=== PATIENT | female | born 1965 | race Caucasian/White ===

== ENCOUNTER 2016-03-31 12:09 | Emergency (ER) | payer MEDICARE, OTHER ==
[2016-03-31] MEDS ORDERED: RINGERS SOLUTION,LACTATED 1,000 ML IV ONE (12:28)
[2016-03-31] MEDS ORDERED: MORPHINE SULFATE 10 MG/ML INJ IV ONE (12:29)
[2016-03-31] MEDS ORDERED: ONDANSETRON HCL INJ/PF 4 MG/2 ML SDV IV ONE (12:29)
[2016-03-31 12:42] LABS: ABSOLUTE BASOPHILS # (AUTO) 0.1 10^3/uL (0.0-0.2); ABSOLUTE EOSINOPHILS # (AUTO) 0.2 10^3/uL (0.0-0.6); ABSOLUTE LYMPHOCYTES (AUTO) 1.8 10^3/uL (0.5-4.7); ABSOLUTE MONOCYTES (AUTO) 0.7 10^3/uL (0.1-1.4); ABSOLUTE NEUT (AUTO) 4.4 10^3/uL (1.7-8.2); BASOPHILS % (AUTO) 1.3 % (0-2); EOSINOPHILS % (AUTO) 2.8 % (0-6); HEMATOCRIT 36.3 % (36.0-47.0); HEMOGLOBIN 11.8 g/dL (12.0-15.5); HGB HCT DIFFERENCE -0.9; LYMPHOCYTES % (AUTO) 25.4 % (13-45); MEAN CORPUSCULAR HEMOGLOBIN 25.8 pg (27.0-33.4); MEAN CORPUSCULAR HGB CONC 32.4 g/dL (32.0-36.0); MEAN CORPUSCULAR VOLUME 79 fl (80-97); MONOCYTES % (AUTO) 9.2 % (3-13); RED BLOOD COUNT 4.57 10^6/uL (3.72-5.28); RED CELL DISTRIBUTION WIDTH 15.5 % (11.5-14.0); SEGMENTED NEUTROPHILS % (AUTO) 61.3 % (42-78); WHITE BLOOD COUNT 7.2 10^3/uL (4.0-10.5)
[2016-03-31 12:49] LABS: PROTHROMBIN TIME 11.2 SEC (11.4-15.4)
[2016-03-31 12:50] LABS: PARTIAL THROMBOPLASTIN TIME 25.3 SEC (23.5-35.8)
[2016-03-31] MEDS ORDERED: DIPHENHYDRAMINE HCL 50 MG/ML VIAL ONE (13:00)
[2016-03-31 13:14] LABS: ALANINE AMINOTRANSFERASE 18 U/L (9-52); ALBUMIN 4.5 g/dL (3.5-5.0); ALKALINE PHOSPHATASE 83 U/L (38-126); ANION GAP 13 (5-19); ASPARTATE AMINO TRANSFERASE 22 U/L (14-36); BILIRUBIN,TOTAL 0.5 mg/dL (0.2-1.3); BLOOD UREA NITROGEN 10 mg/dL (7-20); CALCIUM 9.6 mg/dL (8.4-10.2); CARBON DIOXIDE 25 mmol/L (22-30); CHLORIDE 102 mmol/L (98-107); CREATININE RESULT 0.79 mg/dL (0.52-1.25); GLUCOSE 78 mg/dL (75-110); POTASSIUM 4.2 mmol/L (3.6-5.0); SODIUM 139.8 mmol/L (137-145); TOTAL PROTEIN 7.4 g/dL (6.3-8.2)
[2016-03-31] MEDS ORDERED: DIPHENHYDRAMINE HCL 50 MG/ML VIAL IV ONE (13:19)
[2016-03-31 13:52] LABS: APPEARANCE,URINE CLEAR; BILIRUBIN,URINE NEGATIVE (NEGATIVE); GLUCOSE, URINE NEGATIVE (NEGATIVE); KETONES,URINE NEGATIVE (NEGATIVE); LEUKOCYTE ESTERASE,URINE NEGATIVE (NEGATIVE); NITRITE,URINE NEGATIVE (NEGATIVE); PROTEIN,URINE NEGATIVE (NEGATIVE); URINE SPECIFIC GRAVITY 1.004; UROBILINOGEN,URINE NEGATIVE mg/dL (<2.0)
--- NOTE | 2016-03-31 15:00 | ER Document Report ---
ED Fall - General Chief Complaint: Fall Stated Complaint: FALL/ HEAD PAIN Notes: This is a 51-year-old female who states she was climbing a 12 foot ladder to try to reach some plumbing apparatus on her roof when she fell, striking her head, neck and back. Her daughter who is with her denies that the patient lost consciousness. Patient states she does remember what happened. She complains of left ankle pain, had neck and back pain. TRAVEL OUTSIDE OF THE [place] IN LAST 30 DAYS: No - Related data Allergies/Adverse Reactions: hydromorphone HCl [From Dilaudid] Allergy (Verified 10/29/15 13:43) tetracycline [Tetracycline] Allergy (Verified 10/29/15 13:43) Past Medical History - General Information source: Patient, Emergency Med Personnel - Social History Smoking Status: Unknown if Ever Smoked Frequency of alcohol use: None Drug Abuse: None Lives with: Family Family History: Reviewed & Not Pertinent - Past Medical History Cardiac Medical History: Reports: Hx Hypertension - no med Denies: Hx Coronary Artery Disease, Hx Heart Attack Pulmonary Medical History: Reports: Hx Pneumonia Denies: Hx Asthma, Hx Bronchitis, Hx COPD Neurological Medical History: Denies: Hx Cerebrovascular Accident, Hx Seizures Renal/ Medical History: Reports: Hx Kidney Stones Musculoskeltal Medical History: Reports Hx Arthritis, Reports Hx Musculoskeletal Trauma Psychiatric Medical History: Reports: Hx Depression Traumatic Medical History: Reports: Hx Pneumothorax Past Surgical History: Reports: Hx Abdominal Surgery - abscess, Hx Section, Hx Cholecystectomy, Hx Tonsillectomy - and adenoids, Hx Tubal Ligation - Immunizations Immunizations up to date: Yes Hx Diphtheria, Pertussis, Tetanus Vaccination: Yes Review of Systems - Review of Systems Constitutional: denies: Fever EENT: denies: Blurred vision, Throat pain, Difficulty swallowing Cardiovascular: denies: Syncope Respiratory: denies: Short of breath Gastrointestinal: denies: Abdominal pain Genitourinary: denies: Flank pain, Hematuria Musculoskeletal: Ankle swelling Skin: denies: Rash Hematologic/Lymphatic: denies: Swollen glands Neurological/Psychological: denies: Numbness, Tingling Physical Exam - Vital signs Vitals: Temp Pulse Resp BP Pulse Ox 98.1 F 99 18 126/98 H 100 03/31/16 12:26 03/31/16 12:26 03/31/16 12:26 03/31/16 12:26 03/31/16 12:26 - General General appearance: Appears well, Alert In distress: None - HEENT Head: Normocephalic, Atraumatic, Tenderness. No: Ecchymosis, [place]'s eyes Eyes: Normal Pupils: PERRL Ears: Normal Tympanic membrane: Normal Mouth/Lips: Normal Mucous membranes: Normal Pharynx: Normal Neck: Other - Diffuse midline cervical spine tenderness without step-off or deformity, no crepitus - Respiratory Respiratory status: No respiratory distress Breath sounds: Normal Chest palpation: Tender - Cardiovascular Rhythm: Regular Murmur: No - Abdominal Inspection: Normal, Obese Distension: No distension Tenderness: Tender - Mild diffuse tenderness without guarding or rebound - Back Back: Tender - Tender in the mid thoracic through lower lumbar spine - Extremities Hand: Other - 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 discussed pt status/ family concern with mental health who will see pt in ED. - Vital Signs Vital signs: Temp Pulse Resp BP Pulse Ox 98.1 F 99 16 123/69 96 03/31/16 12:26 03/31/16 12:26 03/31/16 16:01 03/31/16 16:01 03/31/16 16:01 - Laboratory Result Diagrams: 03/31/16 12:30 03/31/16 12:30 Laboratory results interpreted by me: 03/31/16 03/31/16 12:30 12:30 Hgb 11.8 L MCV 79 L MCH 25.8 L RDW 15.5 H PT 11.2 L Discharge - Discharge Clinical Impression: Closed fracture sternum Qualifiers: Encounter type: initial encounter Sternal location: manubrium Qualified Code(s) : S22.21XA - Fracture of manubrium, initial encounter for closed fracture Condition: Stable Disposition: HOME, SELF-CARE Additional Instructions: return if you have fever, shortness of breath, or any new concerns. Prescriptions: Hydrocodone/Acetaminophen [Mclean 5-325 mg Tablet] 1 tab PO 6XD PRN #12 tablet PRN Reason: Ibuprofen [Motrin 600 Mg Tablet] 600 mg PO TID #15 tablet
[2016-03-31] MEDS ORDERED: OXYCODONE-ACETAMINOPHEN 5-325 MG TABLET PO ONE (16:12)
[2016-03-31] MEDS ORDERED: KETOROLAC TROMETHAMINE INJ/PF 30 MG/1 ML SDV IV ONE (16:14)
[2016-03-31 16:38] VITALS: BP 123/69
== END 2016-03-31 17:40 | disposition home or self-care (01) ==
LOC: ER 12:09
DX: S22.21XA Fracture of manubrium, initial encounter for closed fracture (principal); R51 Headache; M25.572 Pain in left ankle and joints of left foot; M54.2 Cervicalgia; M54.9 Dorsalgia, unspecified; W19.XXXA Unspecified fall, initial encounter
CPT/HCPCS: 99284; 96361; 96374; 96375; 36415; 85025; 85610; 85730; 80053; 81001; 73600; 70450; 71260; 72125; 74177; J1200; J1885; J2270; A9270; J2405; J7120

== ENCOUNTER 2016-04-03 09:40 | Emergency (ER) | payer MEDICARE, OTHER ==
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
[2016-04-03] MEDS ORDERED: NORMAL SALINE 1000 ML 2,000 ML IV ONE (10:27)
[2016-04-03 11:06] LABS: ABSOLUTE BASOPHILS # (AUTO) 0.1 10^3/uL (0.0-0.2); ABSOLUTE EOSINOPHILS # (AUTO) 0.1 10^3/uL (0.0-0.6); ABSOLUTE LYMPHOCYTES (AUTO) 1.1 10^3/uL (0.5-4.7); ABSOLUTE MONOCYTES (AUTO) 0.5 10^3/uL (0.1-1.4); ABSOLUTE NEUT (AUTO) 11.8 10^3/uL (1.7-8.2); BASOPHILS % (AUTO) 0.4 % (0-2); EOSINOPHILS % (AUTO) 0.9 % (0-6); HEMATOCRIT 45.7 % (36.0-47.0); HEMOGLOBIN 13.7 g/dL (12.0-15.5); LYMPHOCYTES % (AUTO) 7.8 % (13-45); MEAN CORPUSCULAR HEMOGLOBIN 24.5 pg (27.0-33.4); MEAN CORPUSCULAR VOLUME 82 fl (80-97); MONOCYTES % (AUTO) 3.9 % (3-13); RED BLOOD COUNT 5.59 10^6/uL (3.72-5.28); RED CELL DISTRIBUTION WIDTH 16.2 % (11.5-14.0); WHITE BLOOD COUNT 13.6 10^3/uL (4.0-10.5)
[2016-04-03 11:27] LABS: HGB HCT DIFFERENCE -4.6
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
[2016-04-03] MEDS ORDERED: KETOROLAC TROMETHAMINE INJ/PF 30 MG/1 ML SDV IV ONE (12:27)
[2016-04-03 12:37] LABS: ALANINE AMINOTRANSFERASE 35 U/L (9-52); ALBUMIN 3.6 g/dL (3.5-5.0); ALKALINE PHOSPHATASE 82 U/L (38-126); ANION GAP 11 (5-19); ASPARTATE AMINO TRANSFERASE 16 U/L (14-36); BILIRUBIN,TOTAL 0.5 mg/dL (0.2-1.3); BLOOD UREA NITROGEN 12 mg/dL (7-20); CALCIUM 8.8 mg/dL (8.4-10.2); CARBON DIOXIDE 21 mmol/L (22-30); CHLORIDE 110 mmol/L (98-107); CREATININE RESULT 0.86 mg/dL (0.52-1.25); GLUCOSE 87 mg/dL (75-110); LIPASE 32.4 U/L (23-300); POTASSIUM 4.2 mmol/L (3.6-5.0); SODIUM 141.5 mmol/L (137-145); TOTAL PROTEIN 6.3 g/dL (6.3-8.2)
[2016-04-03 12:47] LABS: APPEARANCE,URINE CLOUDY; BILIRUBIN,URINE SMALL (NEGATIVE); GLUCOSE, URINE NEGATIVE (NEGATIVE); KETONES,URINE NEGATIVE (NEGATIVE); LEUKOCYTE ESTERASE,URINE TRACE (NEGATIVE); NITRITE,URINE NEGATIVE (NEGATIVE); PROTEIN,URINE 100 mg/dL (NEGATIVE); URINE SPECIFIC GRAVITY 1.026; UROBILINOGEN,URINE NEGATIVE mg/dL (<2.0)
[2016-04-03] MEDS ORDERED: CEFTRIAXONE 1 GM/D5W RTU 50 ML IV ONE (13:03)
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
[2016-04-03] MEDS ORDERED: DIPHENHYDRAMINE HCL 50 MG/ML VIAL IV ONE (13:22)
[2016-04-03] MEDS ORDERED: FAMOTIDINE INJ/PF 20 MG/2 ML SDV IV ONE (13:22)
[2016-04-03] MEDS ORDERED: MORPHINE SULFATE 10 MG/ML INJ IV ONE (14:45)
[2016-04-03] MEDS ORDERED: METRONIDAZOLE 500 MG TABLET PO ONE (15:00)
[2016-04-03] MEDS ORDERED: CIPROFLOXACIN HCL 750 MG TABLET PO ONE (15:00)
[2016-04-03 16:53] VITALS: BP 126/73
--- NOTE | 2016-04-03 19:24 | EKG REPORT ---
SEVERITY:- BORDERLINE ECG - SINUS RHYTHM BORDERLINE PROLONGED QT INTERVAL : Confirmed by: Saida Stanford MD 03-Apr-2016 19:22:24
== END 2016-04-03 16:40 | disposition home or self-care (01) ==
LOC: ER 09:40
DX: K52.9 Noninfective gastroenteritis and colitis, unspecified (principal); G44.309 Post-traumatic headache, unspecified, not intractable; W13.2XXS Fall from, out of or through roof, sequela; M54.5 Low back pain; R10.13 Epigastric pain; F17.200 Nicotine dependence, unspecified, uncomplicated; Z87.19 Personal history of other diseases of the digestive system; Z88.5 Allergy status to narcotic agent; Z88.1 Allergy status to other antibiotic agents; I10 Essential (primary) hypertension; Z90.49 Acquired absence of other specified parts of digestive tract; R00.0 Tachycardia, unspecified
CPT/HCPCS: 93005; 99284; 96361; 96375; 96365; 36415; 87086; 83690; 85025; 80053; 81001; 87493 ×2; 74177; 93010; J1200; J1885; J2270; A9270 ×2; J7030; S0028; J0696; J3490

== ENCOUNTER 2016-04-13 20:59 | Emergency (ER) | payer MEDICARE ==
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
[2016-04-14] MEDS ORDERED: NORMAL SALINE 1000 ML 1,000 ML IV ONE (00:12)
--- NOTE | 2016-04-14 00:34 | ER Document Report ---
ED GI/ - General Mode of Arrival: Medic Information source: Patient TRAVEL OUTSIDE OF THE [place] IN LAST 30 DAYS: No - HPI Patient complains to provider of: Abdominal pain, Diarrhea. No: Dysuria Onset: Other - see HPI Timing/Duration: Persistent Associated symptoms: Diarrhea, Dizzy, Nausea, Other - blurry vision. denies: Dysuria Similar symptoms previously: Yes Recently seen / treated by doctor: Yes <CATHLEEN WILKES - Last Filed: 04/14/16 04:48> <GARY JOHNSTON - Last Filed: 04/14/16 05:14> - General Chief Complaint: Nausea/Vomiting Stated Complaint: NAUSEA, VOMITING,DIZZINESS Notes: Patient is a 51-year-old female presenting to the emergency department with multiple complaints. Patient complains of nausea, vomiting, dizziness, blurred vision, abdominal pain, and diarrhea. Patient states that she has had these symptoms for the last 3 months. Patient has been to the emergency department multiple times for these symptoms since 08/2015. Patient states that she has been on 10 different courses of antibiotics over the last 3 months and that she has tested positive for C. Diff. Colitis at [facility]. patient states that her last course of antibiotics were finished on Thursday. Patient states that today she to yogurts and a banana and when she drank some Gatorade she became very nauseous. Patient denies any urinary symptoms or dysuria. Patient has a history appendectomy and cholecystectomy. Patient also states that she has some kidney and liver problems as well as GERD. (CATHLEEN WILKES) - Related Data Allergies/Adverse Reactions: hydromorphone HCl [From Dilaudid] Allergy (Verified 04/13/16 21:37) prednisone Allergy (Verified 04/13/16 21:37) Psychosis tetracycline [Tetracycline] Allergy (Verified 04/13/16 21:37) Past Medical History - General Information source: Patient - Social History Smoking Status: Current Every Day Smoker Chew tobacco use (# tins/day): No Frequency of alcohol use: Social Drug Abuse: None Family History: None - Past Medical History Cardiac Medical History: Reports: Hx Hypertension - no med Pulmonary Medical History: Reports: Hx Pneumonia Renal/ Medical History: Reports: Hx Kidney Stones GI Medical History: Reports: Hx Diverticulitis Musculoskeltal Medical History: Reports Hx Arthritis, Reports Hx Musculoskeletal Trauma Psychiatric Medical History: Reports: Hx Depression Traumatic Medical History: Reports: Hx Pneumothorax Past Surgical History: Reports: Hx Abdominal Surgery - abscess, SB resection, Hx Adenoidectomy, Hx Appendectomy, Hx Section, Hx Cholecystectomy, Hx Tonsillectomy - and adenoids, Hx Tubal Ligation - Immunizations Immunizations up to date: Yes Hx Diphtheria, Pertussis, Tetanus Vaccination: Yes <CATHLEEN WILKES - Last Filed: 04/14/16 04:48> Review of Systems - Review of Systems Constitutional: No symptoms reported EENT: No symptoms reported Cardiovascular: No symptoms reported Respiratory: No symptoms reported Gastrointestinal: See HPI, Abdominal pain, Diarrhea, Nausea Genitourinary: No symptoms reported. denies: Dysuria Female Genitourinary: No symptoms reported Musculoskeletal: See HPI Skin: No symptoms reported Hematologic/Lymphatic: No symptoms reported Neurological/Psychological: No symptoms reported -: Yes All other systems reviewed and negative <CATHLEEN WILKES - Last Filed: 04/14/16 04:48> Physical Exam - Vital signs Interpretation: Tachycardic - General General appearance: Appears well, Alert - HEENT Head: Normocephalic, Atraumatic Eyes: Normal Pupils: PERRL Mucous membranes: Dry - Respiratory Respiratory status: No respiratory distress Chest status: Nontender Breath sounds: Normal Chest palpation: Normal - Cardiovascular Rhythm: Regular Heart sounds: Normal auscultation Murmur: No - Abdominal Inspection: Normal Distension: No distension Bowel sounds: Normal Tenderness: Tender - Suprapubic tenderness to palpation Organomegaly: No organomegaly - Back Back: Normal, Nontender - Extremities General upper extremity: Normal ROM, Normal strength, Other - 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 General lower extremity: Normal inspection, Normal ROM, Normal strength - Neurological Neuro grossly intact: Yes Cognition: Normal Orientation: AAOx4 [place] Coma Scale Eye Opening: Spontaneous [place] Coma Scale Verbal: Oriented [place] Coma Scale Motor: Obeys Commands [place] Coma Scale Total: 15 Speech: Normal - Psychological Associated symptoms: Normal affect, Normal mood - Skin Skin Temperature: Warm Skin Moisture: Dry <CATHLEEN WILKES - Last Filed: 04/14/16 04:48> Course - Laboratory Result Diagrams: 04/14/16 02:15 04/14/16 01:22 <CATHLEEN WILKES - Last Filed: 04/14/16 04:48> - Laboratory Result Diagrams: 04/14/16 02:15 04/14/16 01:22 <GARY JOHNSTON - Last Filed: 04/14/16 05:14> - Re-evaluation Re-evalutation: 04/14/16 05:08 Patient has been ambulating back and forth to the bathroom without difficulty. No further vomiting or diarrhea. Blood work within normal limits. No evidence for UTI at this time. Patient has had this pain for 3 months now. She is following up with her primary care doctor about it. Patient will be discharged home. Agrees with plan. Taking by mouth without difficulty. Stable for discharge. (GARY JOHNSTON) - Vital Signs Vital signs: Temp Pulse Resp BP Pulse Ox 98.3 F 113 H 16 122/74 96 04/13/16 21:29 04/13/16 21:29 04/13/16 21:29 04/13/16 21:29 04/13/16 21:29 (CATHLEEN WILKES) (GARY JOHNSTON) - Laboratory Laboratory results interpreted by me: 04/14/16 04/14/16 01:22 02:15 Hgb 11.2 L Hct 35.1 L MCV 79 L MCH 25.4 L RDW 16.0 H Ur Leukocyte Esterase TRACE H Urine Ascorbic Acid 40 H (GARY JOHNSTON) Discharge <CATHLEEN WILKES - Last Filed: 04/14/16 04:48> <GARY JOHNSTON - Last Filed: 04/14/16 05:14> - Discharge Clinical Impression: Vomiting Qualifiers: Vomiting type: unspecified Vomiting Intractability: unspecified Nausea presence : with nausea Qualified Code(s): R11.2 - Nausea with vomiting, unspecified Diarrhea Qualifiers: Diarrhea type: unspecified type Qualified Code(s): R19.7 - Diarrhea, unspecified Abdominal pain Qualifiers: Abdominal location: generalized Qualified Code(s): R10.84 - Generalized abdominal pain Condition: Stable Disposition: HOME, SELF-CARE Instructions: Vomiting ([facility]), Diarrhea, Nonspecific ([facility]), Abdominal Pain ([facility]) Prescriptions: Ondansetron [Zofran Odt 4 mg Tablet] 1 - 2 tab PO Q4H PRN #15 tab.rapdis PRN Reason: For Nausea/Vomiting Oxycodone HCl/Acetaminophen [Percocet 5-325 mg Tablet] 1 - 2 tab PO Q4H PRN #15 tablet PRN Reason: Referrals: PAULINE REYES MD [Primary Care Provider] - Follow up tomorrow Scribe Attestation: 04/14/16 05:14 I personally performed the services described in the documentation, reviewed and edited the documentation which was dictated to the scribe in my presence, and it accurately records my words and actions. (GARY JOHNSTON) Scribe Documentation - Scribe Written by Scribe:: Cathleen Wilkes 04/14/16 04:47 acting as scribe for :: Pilar <CATHLEEN WILKES - Last Filed: 04/14/16 04:48>
[2016-04-14 01:49] LABS: ALANINE AMINOTRANSFERASE 29 U/L (9-52); ALBUMIN 3.5 g/dL (3.5-5.0); ALKALINE PHOSPHATASE 62 U/L (38-126); ANION GAP 12 (5-19); ASPARTATE AMINO TRANSFERASE 18 U/L (14-36); BILIRUBIN,TOTAL 0.4 mg/dL (0.2-1.3); BLOOD UREA NITROGEN 14 mg/dL (7-20); CALCIUM 9.3 mg/dL (8.4-10.2); CARBON DIOXIDE 22 mmol/L (22-30); CHLORIDE 105 mmol/L (98-107); CREATININE RESULT 0.75 mg/dL (0.52-1.25); GLUCOSE 80 mg/dL (75-110); LIPASE 53.9 U/L (23-300); POTASSIUM 4.5 mmol/L (3.6-5.0); SODIUM 138.5 mmol/L (137-145); TOTAL PROTEIN 6.9 g/dL (6.3-8.2)
[2016-04-14 02:46] LABS: ABSOLUTE BASOPHILS # (AUTO) 0.1 10^3/uL (0.0-0.2); ABSOLUTE EOSINOPHILS # (AUTO) 0.2 10^3/uL (0.0-0.6); ABSOLUTE LYMPHOCYTES (AUTO) 2.3 10^3/uL (0.5-4.7); ABSOLUTE MONOCYTES (AUTO) 0.6 10^3/uL (0.1-1.4); ABSOLUTE NEUT (AUTO) 4.9 10^3/uL (1.7-8.2); BASOPHILS % (AUTO) 1.5 % (0-2); EOSINOPHILS % (AUTO) 2.5 % (0-6); HEMATOCRIT 35.1 % (36.0-47.0); HEMOGLOBIN 11.2 g/dL (12.0-15.5); HGB HCT DIFFERENCE -1.5; LYMPHOCYTES % (AUTO) 28.5 % (13-45); MEAN CORPUSCULAR HEMOGLOBIN 25.4 pg (27.0-33.4); MEAN CORPUSCULAR HGB CONC 32.1 g/dL (32.0-36.0); MEAN CORPUSCULAR VOLUME 79 fl (80-97); MONOCYTES % (AUTO) 7.5 % (3-13); RED BLOOD COUNT 4.42 10^6/uL (3.72-5.28); WHITE BLOOD COUNT 8.2 10^3/uL (4.0-10.5)
[2016-04-14] MEDS ORDERED: MORPHINE SULFATE 10 MG/ML INJ IV ONE (02:46)
[2016-04-14] MEDS ORDERED: ONDANSETRON HCL INJ/PF 4 MG/2 ML SDV IV ONE (02:46)
[2016-04-14 03:07] LABS: APPEARANCE,URINE SLIGHTLY-CLOUDY; BILIRUBIN,URINE NEGATIVE (NEGATIVE); GLUCOSE, URINE NEGATIVE (NEGATIVE); KETONES,URINE NEGATIVE (NEGATIVE); LEUKOCYTE ESTERASE,URINE TRACE (NEGATIVE); NITRITE,URINE NEGATIVE (NEGATIVE); PROTEIN,URINE NEGATIVE (NEGATIVE); URINE SPECIFIC GRAVITY 1.027; UROBILINOGEN,URINE NEGATIVE mg/dL (<2.0)
[2016-04-14] MEDS ORDERED: OXYCODONE-ACETAMINOPHEN 5-325 MG TABLET PO ONE (04:47)
[2016-04-14] MEDS ORDERED: RINGERS SOLUTION,LACTATED 1,000 ML IV ONE (04:47)
[2016-04-14] MEDS ORDERED: HYDROCODONE/ACETAMINOPHEN 5-325 MG 6 TAB/DSPK PO PRN (05:14)
[2016-04-14] MEDS ORDERED: ONDANSETRON ODT 4 MG TAB (6 TAB/DSPK) PO PRN (05:14)
[2016-04-14 07:03] VITALS: BP 124/79
--- NOTE | 2016-04-14 08:20 | EKG REPORT ---
SEVERITY:- BORDERLINE ECG - SINUS RHYTHM BORDERLINE PROLONGED QT INTERVAL : Confirmed by: Anselmo Mccarthy MD 14-Apr-2016 08:19:44
== END 2016-04-14 06:40 | disposition home or self-care (01) ==
LOC: ER 20:59
DX: R10.84 Generalized abdominal pain (principal); R11.2 Nausea with vomiting, unspecified; R19.7 Diarrhea, unspecified; R42 Dizziness and giddiness; H53.8 Other visual disturbances; Z87.442 Personal history of urinary calculi; Z90.49 Acquired absence of other specified parts of digestive tract; Z98.51 Tubal ligation status; Z88.6 Allergy status to analgesic agent
CPT/HCPCS: 93005; 99284; 96361; 96375; 96365; 36415; 87040; 83690; 85025; 80053; 81001; 93010; J2270; A9270 ×3; J2405; J7030; J7120

== ENCOUNTER → 2016-05-30 | Outpatient (CLI) | payer MEDICARE ==
[2016-05-30 10:13] LABS: ABSOLUTE BASOPHILS # (AUTO) 0.1 10^3/uL (0.0-0.2); ABSOLUTE EOSINOPHILS # (AUTO) 0.2 10^3/uL (0.0-0.6); ABSOLUTE LYMPHOCYTES (AUTO) 2.4 10^3/uL (0.5-4.7); ABSOLUTE MONOCYTES (AUTO) 0.5 10^3/uL (0.1-1.4); BASOPHILS % (AUTO) 1.1 % (0-2); EOSINOPHILS % (AUTO) 2.7 % (0-6); HEMATOCRIT 39.4 % (36.0-47.0); HGB HCT DIFFERENCE -0.4; LYMPHOCYTES % (AUTO) 28.9 % (13-45); MEAN CORPUSCULAR HEMOGLOBIN 26.2 pg (27.0-33.4); MEAN CORPUSCULAR HGB CONC 32.9 g/dL (32.0-36.0); MEAN CORPUSCULAR VOLUME 80 fl (80-97); MONOCYTES % (AUTO) 6.4 % (3-13); RED BLOOD COUNT 4.94 10^6/uL (3.72-5.28); RED CELL DISTRIBUTION WIDTH 16.6 % (11.5-14.0); SEGMENTED NEUTROPHILS % (AUTO) 60.9 % (42-78); WHITE BLOOD COUNT 8.2 10^3/uL (4.0-10.5)
[2016-05-30 10:34] LABS: ALANINE AMINOTRANSFERASE 22 U/L (9-52); ALBUMIN 4.5 g/dL (3.5-5.0); ALKALINE PHOSPHATASE 84 U/L (38-126); ANION GAP 14 (5-19); ASPARTATE AMINO TRANSFERASE 19 U/L (14-36); BILIRUBIN,DIRECT 0.3 mg/dL (0.0-0.4); BILIRUBIN,TOTAL 0.5 mg/dL (0.2-1.3); BLOOD UREA NITROGEN 12 mg/dL (7-20); CALCIUM 9.9 mg/dL (8.4-10.2); CARBON DIOXIDE 26 mmol/L (22-30); CHLORIDE 103 mmol/L (98-107); CHOLESTEROL 228.29 mg/dL (0-200); CREATININE RESULT 0.69 mg/dL (0.52-1.25); Direct HDL 54 mg/dL (>40); GLUCOSE 76 mg/dL (75-110); LIPASE 66.3 U/L (23-300); POTASSIUM 4.7 mmol/L (3.6-5.0); SODIUM 143.4 mmol/L (137-145); TOTAL PROTEIN 7.8 g/dL (6.3-8.2); TRIGLYCERIDES 286 mg/dL (<150)
[2016-05-30 10:44] LABS: DIRECT LDL 116 mg/dL (<100)
[2016-05-30 10:46] LABS: VLDL CHOLESTEROL 57.2 mg/dL (10-31)
[2016-05-31 12:26] LABS: VITAMIN D 25-HYDROXY 20.2 ng/mL (30.0-100.0)
[2016-06-02 07:17] LABS: C-PEPTIDE 3.7 ng/mL (1.1-4.4)
[2016-06-03 07:22] LABS: PROINSULIN 4.4 pmol/L (0.0-10.0)
== END ==
LOC: LAB 09:39
PROVIDERS: ATTEND Internal Medicine
DX: I10 Essential (primary) hypertension (principal); M19.91 Primary osteoarthritis, unspecified site; E66.9 Obesity, unspecified; Z79.899 Other long term (current) drug therapy
CPT/HCPCS: 36415; 80053; 80061; 82306; 83036; 83690; 84206; 84443; 84681; 85025

== ENCOUNTER → 2016-06-05 | Outpatient (CLI) | payer MEDICARE ==
[2016-06-07 11:06] LABS: FOLLICLE STIMULATING HORMONE 79.9 mIU/mL (.); LUTEINIZING HORMONE 51.2 mIU/mL (.)
== END ==
LOC: LAB 14:54
PROVIDERS: ATTEND Midwife
DX: N92.6 Irregular menstruation, unspecified (principal)
CPT/HCPCS: 36415; 83001; 83002

== ENCOUNTER 2016-07-22 19:33 | Emergency (ER) | payer MEDICARE ==
[2016-07-22 19:43] VITALS: BP 119/44
--- NOTE | 2016-07-22 20:04 | ER Document Report ---
ED Psych Disorder / Suicide - General Chief Complaint: Psych Problem Stated Complaint: PSYCH EVALUATION Time Seen by Provider: 07/22/16 20:00 Information source: Patient Notes: 51-year-old female with a history of bipolar disorder as well as borderline personality disorder who presents today with "my head in a fog" last 3-4 months. She states she has intermittent thoughts of suicidality without a plan. Patient has overdosed in the past. Patient states she was admitted for suicidal ideation around one year ago. She denies any headache, nausea, vomiting, chest pain, any weakness or numbness. She denies any auditory or visual hallucinations. Patient went to see the primary psychiatrist Dr. Avendano who told her to come to the emergency department to be "watched overnight" since [facility] was full. TRAVEL OUTSIDE OF THE [place] IN LAST 30 DAYS: No - HPI Patient complains to provider of: Suicidal ideation Onset: Other - See above Onset was: Gradual Quality of pain: No pain Severity: Moderate Pain Level: Denies Suicide Risk Factors: Other - See above Normal mood: No Associated symptoms: Other - See above Similar symptoms previously: Yes Recently seen / treated by doctor: Yes - Related Data Allergies/Adverse Reactions: hydromorphone HCl [From Dilaudid] Allergy (Verified 07/22/16 19:57) prednisone Allergy (Verified 07/22/16 19:57) Psychosis tetracycline [Tetracycline] Allergy (Verified 07/22/16 19:57) Past Medical History - General Information source: Patient - Social History Smoking Status: Unknown if Ever Smoked Cigarette use (# per day): No Chew tobacco use (# tins/day): No Smoking Education Provided: No Frequency of alcohol use: None Drug Abuse: None Family History: None Patient has suicidal ideation: Yes Patient has homicidal ideation: No - Past Medical History Cardiac Medical History: Reports: Hx Hypertension - no med Denies: Hx Coronary Artery Disease, Hx Heart Attack Pulmonary Medical History: Reports: Hx Pneumonia Denies: Hx Asthma, Hx Bronchitis, Hx COPD Neurological Medical History: Denies: Hx Cerebrovascular Accident, Hx Seizures Renal/ Medical History: Reports: Hx Kidney Stones. Denies: Hx Peritoneal Dialysis GI Medical History: Reports: Hx Diverticulitis Musculoskeltal Medical History: Reports Hx Arthritis, Reports Hx Musculoskeletal Trauma Psychiatric Medical History: Reports: Hx Depression Traumatic Medical History: Reports: Hx Pneumothorax Past Surgical History: Reports: Hx Abdominal Surgery - abscess, SB resection, Hx Adenoidectomy, Hx Appendectomy, Hx Section, Hx Cholecystectomy, Hx Tonsillectomy - and adenoids, Hx Tubal Ligation - Immunizations Immunizations up to date: Yes Hx Diphtheria, Pertussis, Tetanus Vaccination: Yes Review of Systems - Review of Systems Constitutional: denies: Fever EENT: denies: Eye discharge, Nose discharge Respiratory: denies: Short of breath Gastrointestinal: denies: Vomiting Genitourinary: denies: Dysuria Musculoskeletal: denies: Leg swelling Skin: Other - no hives. denies: Rash Neurological/Psychological: Other - no slurred speech -: Yes All other systems reviewed and negative Physical Exam - Vital signs Vitals: Temp Pulse Resp BP Pulse Ox 97.5 F 96 16 119/44 L 99 07/22/16 19:42 07/22/16 19:42 07/22/16 19:42 07/22/16 19:42 07/22/16 19:42 Notes: Reviewed vital signs and nursing note as charted by RN. CONSTITUTIONAL: Alert and oriented and responds appropriately to questions. Well -appearing; well-nourished HEAD: Normocephalic; atraumatic EYES: PERRL; no nystagmus noted. ENT: Normal nose; no rhinorrhea; moist mucous membranes; pharynx without lesions noted NECK: Supple without meningismus; non-tender; no cervical lymphadenopathy, no masses CARD: Regular rate and rhythm; no murmurs, no clicks, no rubs, no gallops; symmetric distal pulses RESP: Normal chest excursion without splinting or tachypnea; breath sounds clear and equal bilaterally; no wheezes, no rhonchi, no rales ABD/GI: Normal bowel sounds; non-distended; soft, non-tenderses BACK: The back appears normal and is non-tender to palpation EXT: Normal ROM in all joints; non-tender to palpation; no cyanosis, no effusions, no edema SKIN: Normal color for age and race; warm; dry; good turgor; capillary refill < 2 seconds; no acute lesions noted NEURO: CN II through XII are intact Moves all extremities equally; Motor and sensory function intact PSYCH: Patient has some tangential thoughts. Affect flat. Course - Re-evaluation Re-evalutation: 07/22/16 20:04 Given the history and physical examination we will order a CT scan of the head as well as obtain a psychiatric consultation and psychiatric laboratory values with an EKG. I anticipate possible psychiatric placement. 07/22/16 21:02 I discussed personally with the radiologist CT scan of the head prior to my transfer the patient's care. He states he sees no acute findings. Psychiatric laboratory values and psychiatric consult is pending. EKG shows a heart of 82, normal sinus rhythm, normal axis, narrow QRS, no obvious ST elevation or depression. - Vital Signs Vital signs: Temp Pulse Resp BP Pulse Ox 97.5 F 96 16 119/44 L 99 07/22/16 19:42 07/22/16 19:42 07/22/16 19:42 07/22/16 19:42 07/22/16 19:42 - Laboratory Result Diagrams: 07/22/16 20:00 07/22/16 20:00 Laboratory results interpreted by me: 07/22/16 20:00 MCH 26.8 L RDW 15.2 H Discharge - Discharge Clinical Impression: Suicidal ideation
[2016-07-22 20:57] LABS: ABSOLUTE BASOPHILS # (AUTO) 0.1 10^3/uL (0.0-0.2); ABSOLUTE EOSINOPHILS # (AUTO) 0.4 10^3/uL (0.0-0.6); ABSOLUTE LYMPHOCYTES (AUTO) 2.3 10^3/uL (0.5-4.7); ABSOLUTE MONOCYTES (AUTO) 0.5 10^3/uL (0.1-1.4); BASOPHILS % (AUTO) 1.3 % (0-2); EOSINOPHILS % (AUTO) 4.4 % (0-6); HEMATOCRIT 42.1 % (36.0-47.0); HEMOGLOBIN 13.7 g/dL (12.0-15.5); LYMPHOCYTES % (AUTO) 28.2 % (13-45); MEAN CORPUSCULAR HEMOGLOBIN 26.8 pg (27.0-33.4); MEAN CORPUSCULAR HGB CONC 32.5 g/dL (32.0-36.0); MEAN CORPUSCULAR VOLUME 82 fl (80-97); MONOCYTES % (AUTO) 6.2 % (3-13); RED BLOOD COUNT 5.11 10^6/uL (3.72-5.28); RED CELL DISTRIBUTION WIDTH 15.2 % (11.5-14.0); SEGMENTED NEUTROPHILS % (AUTO) 59.9 % (42-78); WHITE BLOOD COUNT 8.3 10^3/uL (4.0-10.5)
[2016-07-22 21:09] LABS: APPEARANCE,URINE SLIGHTLY-CLOUDY; BILIRUBIN,URINE NEGATIVE (NEGATIVE); GLUCOSE, URINE NEGATIVE (NEGATIVE); KETONES,URINE NEGATIVE (NEGATIVE); LEUKOCYTE ESTERASE,URINE NEGATIVE (NEGATIVE); NITRITE,URINE NEGATIVE (NEGATIVE); PROTEIN,URINE NEGATIVE (NEGATIVE); URINE SPECIFIC GRAVITY 1.014; UROBILINOGEN,URINE NEGATIVE mg/dL (<2.0)
[2016-07-22 21:17] LABS: ALANINE AMINOTRANSFERASE 24 U/L (9-52); ALBUMIN 4.2 g/dL (3.5-5.0); ALKALINE PHOSPHATASE 90 U/L (38-126); ANION GAP 13 (5-19); ASPARTATE AMINO TRANSFERASE 23 U/L (14-36); BILIRUBIN,DIRECT 0.4 mg/dL (0.0-0.4); BILIRUBIN,TOTAL 0.6 mg/dL (0.2-1.3); BLOOD UREA NITROGEN 16 mg/dL (7-20); CALCIUM 9.5 mg/dL (8.4-10.2); CARBON DIOXIDE 24 mmol/L (22-30); CHLORIDE 103 mmol/L (98-107); CREATININE RESULT 0.87 mg/dL (0.52-1.25); GLUCOSE 73 mg/dL (75-110); POTASSIUM 4.9 mmol/L (3.6-5.0); SODIUM 139.6 mmol/L (137-145); TOTAL PROTEIN 7.5 g/dL (6.3-8.2)
[2016-07-22 21:19] LABS: ALCOHOL < 10 mg/dL (NONE DETECTED)
[2016-07-22 21:19] LABS: URINE BARBITURATES SCREEN NEGATIVE; URINE METHADONE SCREEN NEGATIVE; URINE OPIATES LOW NEGATIVE; URINE PHENCYCLIDINE SCREEN NEGATIVE
[2016-07-22] MEDS ORDERED: (PENDING PHARMACY ID) (Trazodone Hcl [Trazodone Hcl] 300 MG) PO PRN (21:43)
[2016-07-22] MEDS ORDERED: HYDROXYZINE PAMOATE 50 MG CAPSULE PO PRN (21:43)
[2016-07-22] MEDS ORDERED: TRAZODONE HCL 50 MG TABLET PO PRN (21:55)
[2016-07-22] MEDS ORDERED: OXCARBAZEPINE 150 MG TABLET PO SCH (22:00)
[2016-07-22] MEDS ORDERED: GABAPENTIN 400 MG CAPSULE PO SCH (22:00)
[2016-07-22] MEDS ORDERED: (PENDING PHARMACY ID) (Prazosin Hcl [Prazosin Hcl] 1 MG) PO SCH (22:00)
--- NOTE | 2016-07-22 22:13 | EKG REPORT ---
SEVERITY:- NORMAL ECG - SINUS RHYTHM : Confirmed by: Saida Stanford MD 22-Jul-2016 22:13:03
[2016-07-23] MEDS ORDERED: LANSOPRAZOLE 30 MG TAB.RAP.DR PO SCH (06:00)
[2016-07-23] MEDS ORDERED: OXCARBAZEPINE 150 MG TABLET PO SCH (10:00)
[2016-07-23] MEDS ORDERED: TRAZODONE HCL 50 MG TABLET PO SCH (10:00)
[2016-07-23] MEDS ORDERED: DULOXETINE HCL 30 MG CAPSULE.DR PO SCH (10:00)
[2016-07-23] MEDS ORDERED: ALPRAZOLAM 0.5 MG TABLET PO SCH (10:00)
[2016-07-23] MEDS ORDERED: GABAPENTIN 300 MG CAPSULE PO SCH (10:00)
[2016-07-23] MEDS ORDERED: (PENDING PHARMACY ID) (Alprazolam [Alprazolam] 1 MG) PO SCH (10:00)
[2016-07-23] MEDS ORDERED: (PENDING PHARMACY ID) (Duloxetine Hcl [Duloxetine Hcl] 60 MG) PO SCH (10:00)
[2016-07-23] MEDS ORDERED: OXCARBAZEPINE 150 MG PO SCH (10:00)
[2016-08-01] MEDS ORDERED: DOXAZOSIN MESYLATE 1 MG TABLET PO SCH (22:00)
== END 2016-07-23 11:18 ==
LOC: ER 19:33
DX: R45.851 Suicidal ideations (principal); F31.9 Bipolar disorder, unspecified
CPT/HCPCS: 93005; 99285; 36415; 80307 ×4; 85025; 80053; 81001; 70450; 93010; A9270 ×4

== ENCOUNTER 2016-08-09 16:33 | Emergency (ER) | payer MEDICARE ==
[2016-08-09] MEDS ORDERED: IPRATROPIUM/ALBUTEROL 0.5-2.5 MG/3 ML AMPUL NEB ONE (17:17)
--- NOTE | 2016-08-09 17:20 | ER Document Report ---
ED Medical Screen (RME) - General Chief Complaint: Cough Stated Complaint: FEVER Time Seen by Provider: 08/09/16 17:14 Mode of Arrival: Ambulatory Information source: Patient TRAVEL OUTSIDE OF THE [place] IN LAST 30 DAYS: No - HPI Patient complains to provider of: SOB; dyspnea Onset: Other - pt. with h/o COPD and bronchitis states she was given Z-pack by Dr. Wells earlier in the week but she is not improving. - Related Data Allergies/Adverse Reactions: hydromorphone HCl [From Dilaudid] Allergy (Verified 08/09/16 16:57) prednisone Allergy (Verified 08/09/16 16:57) Psychosis tetracycline [Tetracycline] Allergy (Verified 08/09/16 16:57) Past Medical History - Social History Chew tobacco use (# tins/day): No Frequency of alcohol use: Rare Drug Abuse: None - Past Medical History Cardiac Medical History: Reports: Hx Hypertension - no med Denies: Hx Coronary Artery Disease, Hx Heart Attack Pulmonary Medical History: Reports: Hx Pneumonia Denies: Hx Asthma, Hx Bronchitis, Hx COPD Neurological Medical History: Denies: Hx Cerebrovascular Accident, Hx Seizures Renal/ Medical History: Reports: Hx Kidney Stones. Denies: Hx Peritoneal Dialysis GI Medical History: Reports: Hx Diverticulitis Musculoskeltal Medical History: Reports Hx Arthritis, Reports Hx Musculoskeletal Trauma Psychiatric Medical History: Reports: Hx Depression Traumatic Medical History: Reports: Hx Pneumothorax Past Surgical History: Reports: Hx Abdominal Surgery - abscess, SB resection, Hx Adenoidectomy, Hx Appendectomy, Hx Section, Hx Cholecystectomy, Hx Tonsillectomy - and adenoids, Hx Tubal Ligation - Immunizations Immunizations up to date: Yes Hx Diphtheria, Pertussis, Tetanus Vaccination: Yes Physical Exam - Vital signs Vitals: Temp Pulse Resp BP Pulse Ox 98.1 F 104 H 16 134/93 H 95 08/09/16 16:58 08/09/16 16:58 08/09/16 16:58 08/09/16 16:58 08/09/16 16:58 Course - Vital Signs Vital signs: Temp Pulse Resp BP Pulse Ox 98.1 F 104 H 16 134/93 H 95 08/09/16 16:58 08/09/16 16:58 08/09/16 17:10 08/09/16 16:58 08/09/16 16:58
[2016-08-09 18:28] LABS: ABSOLUTE BASOPHILS # (AUTO) 0.1 10^3/uL (0.0-0.2); ABSOLUTE EOSINOPHILS # (AUTO) 0.2 10^3/uL (0.0-0.6); ABSOLUTE LYMPHOCYTES (AUTO) 2.1 10^3/uL (0.5-4.7); ABSOLUTE MONOCYTES (AUTO) 0.4 10^3/uL (0.1-1.4); ABSOLUTE NEUT (AUTO) 3.6 10^3/uL (1.7-8.2); BASOPHILS % (AUTO) 1.1 % (0-2); EOSINOPHILS % (AUTO) 2.7 % (0-6); HEMATOCRIT 38.8 % (36.0-47.0); HEMOGLOBIN 12.7 g/dL (12.0-15.5); HGB HCT DIFFERENCE -0.7; LYMPHOCYTES % (AUTO) 33.3 % (13-45); MEAN CORPUSCULAR HEMOGLOBIN 27.6 pg (27.0-33.4); MEAN CORPUSCULAR HGB CONC 32.8 g/dL (32.0-36.0); MEAN CORPUSCULAR VOLUME 84 fl (80-97); MONOCYTES % (AUTO) 5.7 % (3-13); RED BLOOD COUNT 4.61 10^6/uL (3.72-5.28); RED CELL DISTRIBUTION WIDTH 14.7 % (11.5-14.0); SEGMENTED NEUTROPHILS % (AUTO) 57.2 % (42-78); WHITE BLOOD COUNT 6.3 10^3/uL (4.0-10.5)
[2016-08-09 18:52] LABS: ALANINE AMINOTRANSFERASE 20 U/L (9-52); ALBUMIN 4.3 g/dL (3.5-5.0); ALKALINE PHOSPHATASE 76 U/L (38-126); ANION GAP 13 (5-19); ASPARTATE AMINO TRANSFERASE 16 U/L (14-36); BILIRUBIN,DIRECT 0.3 mg/dL (0.0-0.4); BILIRUBIN,TOTAL 0.3 mg/dL (0.2-1.3); BLOOD UREA NITROGEN 12 mg/dL (7-20); CALCIUM 9.6 mg/dL (8.4-10.2); CARBON DIOXIDE 26 mmol/L (22-30); CHLORIDE 102 mmol/L (98-107); CREATININE RESULT 0.79 mg/dL (0.52-1.25); GLUCOSE 85 mg/dL (75-110); POTASSIUM 4.6 mmol/L (3.6-5.0); SODIUM 140.5 mmol/L (137-145); TOTAL PROTEIN 7.4 g/dL (6.3-8.2)
--- NOTE | 2016-08-09 19:08 | RADIOLOGY REPORT (SQ) ---
EXAM DESCRIPTION: CHEST PA/LAT COMPLETED DATE/TIME: 08/09/2016 6:51 pm REASON FOR STUDY: sob; wheezing COMPARISON: 10/16/2015 EXAM PARAMETERS: NUMBER OF VIEWS: two views TECHNIQUE: Digital Frontal and Lateral radiographic views of the chest acquired. RADIATION DOSE: NA LIMITATIONS: none FINDINGS: LUNGS AND PLEURA: No opacities, masses or pneumothorax. No pleural effusion. MEDIASTINUM AND HILAR STRUCTURES: No masses or contour abnormalities. HEART AND VASCULAR STRUCTURES: Heart normal size. No evidence for failure. BONES: No acute findings. HARDWARE: None in the chest. Incidental note is made of surgical clips within the right upper quadra nt. OTHER: No other significant finding. IMPRESSION: NO SIGNIFICANT RADIOGRAPHIC FINDING IN THE CHEST. TECHNICAL DOCUMENTATION: JOB ID: [id number] [employer]- All Rights Reserved
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
[2016-08-09] MEDS ORDERED: ALBUTEROL SULFATE HFA (90 MCG/PUFF) 8 GM MDI (1 MDI/ER DISP) IH PRN (20:33)
[2016-08-09] MEDS ORDERED: ALBUTEROL SULFATE 0.083% NEB 2.5 MG/3 ML AMPUL NEB ONE (20:33)
[2016-08-09 21:46] VITALS: BP 115/59
== END 2016-08-09 21:45 | disposition home or self-care (01) ==
LOC: ER 16:33
DX: J40 Bronchitis, not specified as acute or chronic (principal); J04.0 Acute laryngitis; R05 Cough; R50.9 Fever, unspecified; J44.9 Chronic obstructive pulmonary disease, unspecified; F17.200 Nicotine dependence, unspecified, uncomplicated
CPT/HCPCS: 94640 ×2; 99283; 36415; 85025; 80053; 71020; A9270 ×2; J3490; J7620

== ENCOUNTER 2016-08-14 17:18 | Emergency (ER) | payer MEDICARE ==
[2016-08-14] MEDS ORDERED: ASPIRIN 81 MG TABLET, CHEWABLE PO ONE (17:57)
--- NOTE | 2016-08-14 18:04 | ER Document Report ---
ED Medical Screen (RME) - General Chief Complaint: Fainting Stated Complaint: WEAKNESS Time Seen by Provider: 08/14/16 17:57 Mode of Arrival: Ambulatory Information source: Patient Notes: 51-year-old female presents with complaints of 3 episodes of syncope. Patient notes a history of migraine headaches but has not had one in 23 years. Patient admits to headache now. I have greeted and performed a rapid initial assessment of this patient. A comprehensive ED assessment and evaluation of the patient, analysis of test results and completion of the medical decision making process will be conducted by additional ED providers. PHYSICAL EXAMINATION: GENERAL: Well-appearing, well-nourished and in no acute distress. HEAD: Atraumatic, normocephalic. EYES: Pupils equal round extraocular movements intact, left pupil cloudy, right pupil clear ENT: Nares patent NECK: Normal range of motion LUNGS: No respiratory distress Musculoskeletal: Normal range of motion NEUROLOGICAL: Normal speech, normal gait. PSYCH: Normal mood, normal affect. SKIN: Warm, Dry, normal turgor, no rashes or lesions noted. TRAVEL OUTSIDE OF THE [place] IN LAST 30 DAYS: No - Related Data Allergies/Adverse Reactions: hydromorphone HCl [From Dilaudid] Allergy (Verified 08/14/16 17:24) prednisone Allergy (Verified 08/14/16 17:24) Psychosis tetracycline [Tetracycline] Allergy (Verified 08/14/16 17:24) Past Medical History - Social History Chew tobacco use (# tins/day): No Frequency of alcohol use: Occasional Drug Abuse: None - Past Medical History Cardiac Medical History: Reports: Hx Hypertension - no med Denies: Hx Coronary Artery Disease, Hx Heart Attack Pulmonary Medical History: Reports: Hx Pneumonia Denies: Hx Asthma, Hx Bronchitis, Hx COPD Neurological Medical History: Denies: Hx Cerebrovascular Accident, Hx Seizures Renal/ Medical History: Reports: Hx Kidney Stones. Denies: Hx Peritoneal Dialysis GI Medical History: Reports: Hx Diverticulitis Musculoskeltal Medical History: Reports Hx Arthritis, Reports Hx Musculoskeletal Trauma Psychiatric Medical History: Reports: Hx Depression Traumatic Medical History: Reports: Hx Pneumothorax Past Surgical History: Reports: Hx Abdominal Surgery - abscess, SB resection, Hx Adenoidectomy, Hx Appendectomy, Hx Section, Hx Cholecystectomy, Hx Tonsillectomy - and adenoids, Hx Tubal Ligation - Immunizations Immunizations up to date: Yes Hx Diphtheria, Pertussis, Tetanus Vaccination: Yes Physical Exam - Vital signs Vitals: Temp Pulse Resp BP Pulse Ox 97.7 F 93 16 126/86 H 94 08/14/16 17:25 08/14/16 17:25 08/14/16 17:25 08/14/16 17:25 08/14/16 17:25 Course - Vital Signs Vital signs: Temp Pulse Resp BP Pulse Ox 97.7 F 93 16 126/86 H 94 08/14/16 17:25 08/14/16 17:25 08/14/16 17:25 08/14/16 17:25 08/14/16 17:25
--- NOTE | 2016-08-14 19:07 | RADIOLOGY REPORT (SQ) ---
EXAM DESCRIPTION: CHEST SINGLE VIEW COMPLETED DATE/TIME: 08/14/2016 6:47 pm REASON FOR STUDY: syncope COMPARISON: 08/09/2016. EXAM PARAMETERS: NUMBER OF VIEWS: One view. TECHNIQUE: Single frontal radiographic view of the chest acquired. RADIATION DOSE: NA LIMITATIONS: None. FINDINGS: LUNGS AND PLEURA: No opacities, masses or pneumothorax. No pleural effusion. MEDIASTINUM AND HILAR STRUCTURES: No masses. Contour normal. HEART AND VASCULAR STRUCTURES: Heart normal in size. Normal vasculature. BONES: No acute findings. HARDWARE: None in the chest. OTHER: No other significant finding. IMPRESSION: NO ACUTE RADIOGRAPHIC FINDING IN THE CHEST. TECHNICAL DOCUMENTATION: JOB ID: [id number]
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
[2016-08-14 20:34] LABS: ABSOLUTE BASOPHILS # (AUTO) 0.1 10^3/uL (0.0-0.2); ABSOLUTE EOSINOPHILS # (AUTO) 0.2 10^3/uL (0.0-0.6); ABSOLUTE LYMPHOCYTES (AUTO) 2.3 10^3/uL (0.5-4.7); ABSOLUTE MONOCYTES (AUTO) 0.4 10^3/uL (0.1-1.4); ABSOLUTE NEUT (AUTO) 4.2 10^3/uL (1.7-8.2); BASOPHILS % (AUTO) 0.8 % (0-2); EOSINOPHILS % (AUTO) 2.3 % (0-6); HEMATOCRIT 44.2 % (36.0-47.0); HEMOGLOBIN 14.5 g/dL (12.0-15.5); HGB HCT DIFFERENCE -0.7; MEAN CORPUSCULAR HEMOGLOBIN 27.5 pg (27.0-33.4); MEAN CORPUSCULAR HGB CONC 32.8 g/dL (32.0-36.0); MEAN CORPUSCULAR VOLUME 84 fl (80-97); MONOCYTES % (AUTO) 5.2 % (3-13); RED BLOOD COUNT 5.27 10^6/uL (3.72-5.28); RED CELL DISTRIBUTION WIDTH 14.4 % (11.5-14.0); SEGMENTED NEUTROPHILS % (AUTO) 59.7 % (42-78); WHITE BLOOD COUNT 7.1 10^3/uL (4.0-10.5)
--- NOTE | 2016-08-14 20:57 | RADIOLOGY REPORT (SQ) ---
EXAM DESCRIPTION: CT HEAD WITHOUT COMPLETED DATE/TIME: 08/14/2016 8:49 pm REASON FOR STUDY: headache COMPARISON: 07/22/2016. TECHNIQUE: Axial images acquired through the brain without intravenous contrast. Images reviewed wi th bone, brain and subdural windows. Images stored on PACS. All CT scanners at this facility use dose modulation, iterative reconstruction, and/or weight based d osing when appropriate to reduce radiation dose to as low as reasonably achievable (ALARA). [facility]: Dose Right [facility]: CareDose [facility]: Dose Right [facility]: Teradose 4D [facility]: CVRx RADIATION DOSE: 64.61 mGy. LIMITATIONS: None. FINDINGS: VENTRICLES: Normal size and contour. CEREBRUM: No masses. No hemorrhage. No midline shift. Normal joshi/white matter differentiation. N o evidence for acute infarction. CEREBELLUM: No masses. No hemorrhage. No alteration of density. No evidence for acute infarction. EXTRAAXIAL SPACES: No fluid collections. No masses. ORBITS AND GLOBE: No intra- or extraconal masses. Normal contour of globe without masses. CALVARIUM: No fracture. PARANASAL SINUSES: No fluid or mucosal thickening. SOFT TISSUES: No mass or hematoma. OTHER: No other significant finding. IMPRESSION: NORMAL BRAIN CT WITHOUT CONTRAST. TECHNICAL DOCUMENTATION: JOB ID: [id number] Quality ID # [id number]: Final reports with documentation of one or more dose reduction techniques (e.g., Au tomated exposure control, adjustment of the mA and/or kV according to patient size, use of iterative reconstruction technique) 2010 [employer]- All Rights Reserved
[2016-08-14 20:58] LABS: ALANINE AMINOTRANSFERASE 16 U/L (9-52); ALBUMIN 4.6 g/dL (3.5-5.0); ALKALINE PHOSPHATASE 92 U/L (38-126); ANION GAP 9 (5-19); ASPARTATE AMINO TRANSFERASE 20 U/L (14-36); BILIRUBIN,DIRECT 0.3 mg/dL (0.0-0.4); BILIRUBIN,TOTAL 0.5 mg/dL (0.2-1.3); BLOOD UREA NITROGEN 14 mg/dL (7-20); CALCIUM 10.1 mg/dL (8.4-10.2); CARBON DIOXIDE 26 mmol/L (22-30); CHLORIDE 103 mmol/L (98-107); CREATINE KINASE 38 U/L (30-135); CREATININE RESULT 0.78 mg/dL (0.52-1.25); GLUCOSE 78 mg/dL (75-110); POTASSIUM 4.6 mmol/L (3.6-5.0); SODIUM 138.2 mmol/L (137-145); TOTAL PROTEIN 8.1 g/dL (6.3-8.2)
[2016-08-14 21:07] LABS: CREATINE KINASE MB 0.42 ng/mL (<4.55)
[2016-08-14 21:08] LABS: TROPONIN I < 0.012 ng/mL
[2016-08-14] MEDS ORDERED: KETOROLAC TROMETHAMINE INJ/PF 30 MG/1 ML SDV IV ONE (21:15)
[2016-08-14] MEDS ORDERED: METOCLOPRAMIDE HCL INJ/PF 10 MG/2 ML SDV IV ONE (21:15)
[2016-08-14] MEDS ORDERED: DIPHENHYDRAMINE HCL 25 MG CAPSULE PO ONE (21:15)
[2016-08-14 23:52] VITALS: BP 114/76
--- NOTE | 2016-08-15 11:04 | EKG REPORT ---
SEVERITY:- BORDERLINE ECG - SINUS RHYTHM PROBABLE LEFT ATRIAL ABNORMALITY : Confirmed by: Saida Stanford MD 15-Aug-2016 11:03:45
== END 2016-08-14 23:15 | disposition home or self-care (01) ==
LOC: ER 17:18
DX: R51 Headache (principal); R53.1 Weakness; R55 Syncope and collapse; F17.210 Nicotine dependence, cigarettes, uncomplicated; Z88.6 Allergy status to analgesic agent; Z87.442 Personal history of urinary calculi; Z90.49 Acquired absence of other specified parts of digestive tract; Z98.51 Tubal ligation status
CPT/HCPCS: 93005; 99285; 96374; 96375; 36415; 82553; 82550; 85025; 80053; 84484; 71010; 70450; 93010; A9270; J1885; J2765

== ENCOUNTER 2016-09-18 19:40 | Observation (INO) | payer MEDICARE ==
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
[2016-09-18] MEDS ORDERED: MORPHINE SULFATE 10 MG/ML INJ IV ONE ×2 (20:58→22:26)
[2016-09-18] MEDS ORDERED: ONDANSETRON HCL INJ/PF 4 MG/2 ML SDV IV ONE (20:58)
[2016-09-18 21:29] LABS: APPEARANCE,URINE SLIGHTLY-CLOUDY; BILIRUBIN,URINE NEGATIVE (NEGATIVE); GLUCOSE, URINE NEGATIVE (NEGATIVE); KETONES,URINE NEGATIVE (NEGATIVE); LEUKOCYTE ESTERASE,URINE TRACE (NEGATIVE); NITRITE,URINE NEGATIVE (NEGATIVE); PROTEIN,URINE NEGATIVE (NEGATIVE); URINE SPECIFIC GRAVITY 1.023; UROBILINOGEN,URINE NEGATIVE mg/dL (<2.0)
[2016-09-18 21:47] LABS: ABSOLUTE BASOPHILS # (AUTO) 0.1 10^3/uL (0.0-0.2); ABSOLUTE EOSINOPHILS # (AUTO) 0.2 10^3/uL (0.0-0.6); ABSOLUTE MONOCYTES (AUTO) 0.5 10^3/uL (0.1-1.4); EOSINOPHILS % (AUTO) 3.1 % (0-6); HEMATOCRIT 35.7 % (36.0-47.0); HEMOGLOBIN 11.7 g/dL (12.0-15.5); HGB HCT DIFFERENCE -0.6; MEAN CORPUSCULAR HEMOGLOBIN 28.1 pg (27.0-33.4); MEAN CORPUSCULAR HGB CONC 32.7 g/dL (32.0-36.0); MEAN CORPUSCULAR VOLUME 86 fl (80-97); RED BLOOD COUNT 4.15 10^6/uL (3.72-5.28); RED CELL DISTRIBUTION WIDTH 14.9 % (11.5-14.0); SEGMENTED NEUTROPHILS % (AUTO) 58.9 % (42-78); WHITE BLOOD COUNT 6.8 10^3/uL (4.0-10.5)
[2016-09-18] MEDS ORDERED: MORPHINE SULFATE 10 MG/ML INJ ONE (22:20)
[2016-09-18 22:27] LABS: ALANINE AMINOTRANSFERASE 19 U/L (9-52); ALBUMIN 3.9 g/dL (3.5-5.0); ALKALINE PHOSPHATASE 78 U/L (38-126); ANION GAP 9 (5-19); ASPARTATE AMINO TRANSFERASE 29 U/L (14-36); BILIRUBIN,DIRECT 0.4 mg/dL (0.0-0.4); BILIRUBIN,TOTAL 0.5 mg/dL (0.2-1.3); BLOOD UREA NITROGEN 10 mg/dL (7-20); CALCIUM 8.9 mg/dL (8.4-10.2); CARBON DIOXIDE 27 mmol/L (22-30); CHLORIDE 106 mmol/L (98-107); CREATININE RESULT 0.74 mg/dL (0.52-1.25); GLUCOSE 85 mg/dL (75-110); POTASSIUM 4.9 mmol/L (3.6-5.0); SODIUM 142.4 mmol/L (137-145); TOTAL PROTEIN 7.1 g/dL (6.3-8.2)
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
[2016-09-19] MEDS ORDERED: ONDANSETRON 4 MG TAB.RAPDIS PO PRN (02:24)
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
[2016-09-19] MEDS: NORMAL SALINE 1000 ML 1,000 ML IV PRN ×2 (05:47→16:29)
[2016-09-19] MEDS: MORPHINE SULFATE 10 MG/ML INJ IV PRN ×4 (05:48→20:48)
[2016-09-19] MEDS: ENOXAPARIN SODIUM INJ 40 MG/0.4 ML DISP.SYRIN SUBCUT SCH (09:18)
--- NOTE | 2016-09-19 12:37 | PSYCHOLOGICAL NOTE ---
Psych Note - Psych Note Psych Note: Psychiatric evaluation consult requested for concerns the patient has had previous suicide attempts and suicidal ideation. Patient states it has been a year since her attempted suicide (clinician notes the patient attempted suicide by overdose on 10/29/2015). Patient states in July she went to [facility] because she was having suicidal ideation and "losing time " so was concerned she would accidentally hurt herself during those times. Patient reports she was going through medication changes at that time. She states she ended up being discharged early because "it was an unhealthy environment for me and it was better for me to heal at home." Patient states she has been taking her medications every night but is unable to take them any other time because it is too much money to fill her prescriptions. Patient reports it is over $100 a month for her medications and her inhaler is the most expensive at over $40. Patient states she has worked with her providers to find medications that are not as expensive. Patient adamantly denies current suicidal ideation. Patient is alert and orientated to person, place, time and circumstance. Mood is slightly irritable but over all euthymic (clinician notes patient is currently NPO for up coming surgery and wants something to drink). Patient denies suicidal and homicidal ideation. Patient denies auditory and visual hallucinations; patient is not demonstrating any behaviour congruent with responding to internal stimuli. No delusions are noted. Eye contact was well maintained. Thought process is organized and linear. Attention and concentration are good. Insight, judgment and impulse control are currently good. 309.81 (F43.10) Posttraumatic Stress Disorder, per history 296.80 (F31.9) Unspecified Bipolar and Related Disorder, per history 301.83 (F60.3) Borderline Personality Disorder per history Impression/Plan: Patient is considered psychiatrically cleared. Patient does not meet IVC criteria per [place] GS 122C. Patient denies current suicidal ideation. Patient is recommended to continue regularly scheduled mental health treatment. Patient has outpatient mental health provider through [facility]. Dr. Diamond was consulted on the care and management of this patient.
--- NOTE | 2016-09-19 15:28 | PROGRESS NOTE E ---
Progress Note NAME: MATTHEW SALCIDO : 1965 AGE: 51Y DATE: 09/19/2016 ROOM: 428 SUBJECTIVE: She is still complaining of pain along the pubic section incision site. OBJECTIVE: I reviewed the CAT scan of the abdomen with Dr. Bowden, and it appears that the finding on the mesentery may be scarring from her previous surgery in January 2016. She is very thirsty and hungry. PLAN: Plan is to start her on clear liquids and increase slowly. DICTATING PHYSICIAN: BRAXTON HINTON M.D. [id number] PHY#: [id number] ID: [id number] JOB#: [id number] ACCT: [id number] cc:BRAXTON HINTON M.D. >
[2016-09-20] MEDS: MORPHINE SULFATE 10 MG/ML INJ IV PRN ×4 (00:57→20:06)
--- NOTE | 2016-09-20 10:53 | PROGRESS NOTE E ---
Progress Note NAME: MATTHEW SALCIDO : 1965 AGE: 51Y DATE: 09/20/2016 ROOM: 428 SUBJECTIVE: She is complaining of more diffuse abdominal pains this morning with one episode of vomiting. Her abdomen is soft and with diffuse tenderness on deep palpation. She is afebrile. She is on a lot of antianxiety medications and she is concerned that she is not getting any of the medications. PLAN: Resume all of her medications and we will have the hospitalist to help us with medical treatment. We will hold or cut back a little bit on her p.o. liquid intake and resume IV fluids for now. We will continue her on parenteral pain medications. We will repeat the CBC in the morning. DICTATING PHYSICIAN: BRAXTON HINTON M.D. [id number] PHY#: [id number] ID: [id number] JOB#: [id number] ACCT: [id number] cc: >
[2016-09-20] MEDS ORDERED: HYDROMORPHONE HCL INJ/PF 2 MG/ML AMPULE IV PRN (10:55)
[2016-09-20] MEDS ORDERED: ONDANSETRON HCL INJ/PF 4 MG/2 ML SDV IV PRN (10:55)
[2016-09-20] MEDS: ENOXAPARIN SODIUM INJ 40 MG/0.4 ML DISP.SYRIN SUBCUT SCH (11:25)
[2016-09-20] MEDS ORDERED: OXCARBAZEPINE 150 MG TABLET PO ONE (11:30)
[2016-09-20] MEDS ORDERED: ALPRAZOLAM 0.5 MG TABLET PO ONE (11:30)
[2016-09-20] MEDS: GABAPENTIN 100 MG CAPSULE PO SCH ×2 (13:22→21:40)
[2016-09-20] MEDS: NORMAL SALINE 1000 ML 1,000 ML IV PRN (13:23)
[2016-09-20] MEDS ORDERED: FUROSEMIDE INJ/PF 20 MG/2 ML SDV IV ONE (15:37)
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
[2016-09-20] MEDS: ALPRAZOLAM 0.5 MG TABLET PO SCH (21:38)
[2016-09-20] MEDS: BUDESONIDE/FORMOTEROL 160-4.5 MCG 60 PUFF/6 GM MDI IH SCH (21:39)
[2016-09-20] MEDS: DULOXETINE HCL 30 MG CAPSULE.DR PO SCH (21:40)
[2016-09-20] MEDS: FLUTICASONE/SALMETEROL DISKUS 250-50 MCG/DOSE IH SCH (21:40)
[2016-09-20] MEDS: OXCARBAZEPINE 150 MG TABLET PO SCH (21:40)
[2016-09-20] MEDS ORDERED: TRAZODONE HCL 50 MG TABLET PO SCH (22:00)
[2016-09-21] MEDS: GABAPENTIN 100 MG CAPSULE PO SCH ×2 (06:03→13:09)
[2016-09-21] MEDS: FLUTICASONE/SALMETEROL DISKUS 250-50 MCG/DOSE IH SCH (09:55)
[2016-09-21] MEDS: OXCARBAZEPINE 150 MG TABLET PO SCH (09:55)
[2016-09-21] MEDS: ALPRAZOLAM 0.5 MG TABLET PO SCH (09:55)
[2016-09-21] MEDS: DULOXETINE HCL 30 MG CAPSULE.DR PO SCH (09:55)
[2016-09-21] MEDS: BUDESONIDE/FORMOTEROL 160-4.5 MCG 60 PUFF/6 GM MDI IH SCH (09:55)
[2016-09-21] MEDS: ENOXAPARIN SODIUM INJ 40 MG/0.4 ML DISP.SYRIN SUBCUT SCH (09:56)
[2016-09-21] MEDS ORDERED: ARIPIPRAZOLE 5 MG TABLET PO SCH (10:00)
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
[2016-09-21 15:51] VITALS: BP 107/51
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
== END 2016-09-21 17:27 | disposition home or self-care (01) ==
LOC: ER 19:40 → EH 09-19 02:25 → UNDOADMOB 09-19 02:40 → EH 09-19 02:40 → 4S 09-19 04:38
PROVIDERS: ATTEND Surgery
DX: R10.31 Right lower quadrant pain (principal); R93.5 Abnormal findings on diagnostic imaging of other abdominal regions, including retroperitoneum; R11.0 Nausea; R19.5 Other fecal abnormalities; F31.9 Bipolar disorder, unspecified; Z94.5 Skin transplant status; R19.4 Change in bowel habit; G89.21 Chronic pain due to trauma; F60.3 Borderline personality disorder; E87.70 Fluid overload, unspecified; F45.41 Pain disorder exclusively related to psychological factors; K52.9 Noninfective gastroenteritis and colitis, unspecified; R14.3 Flatulence; Z87.828 Personal history of other (healed) physical injury and trauma; J44.9 Chronic obstructive pulmonary disease, unspecified; Z90.49 Acquired absence of other specified parts of digestive tract; Z87.19 Personal history of other diseases of the digestive system; Z79.899 Other long term (current) drug therapy; Z87.891 Personal history of nicotine dependence; Z98.51 Tubal ligation status; Z87.442 Personal history of urinary calculi
CPT/HCPCS: 96376; 99285; 96374; 96375; 36415; 87045; 87205; 83690; 85025; 82272; 80053; 81001; 87493 ×2; 74177; G0378 ×4; A9270 ×11; J1940; J3490 ×4; J2270 ×3; J1650; J2405 ×2; J7030 ×2; S0119

== ENCOUNTER 2016-09-22 16:03 | Emergency (ER) | payer MEDICARE ==
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
[2016-09-22 18:17] LABS: ABSOLUTE BASOPHILS # (AUTO) 0.1 10^3/uL (0.0-0.2); ABSOLUTE EOSINOPHILS # (AUTO) 0.2 10^3/uL (0.0-0.6); ABSOLUTE LYMPHOCYTES (AUTO) 1.9 10^3/uL (0.5-4.7); ABSOLUTE MONOCYTES (AUTO) 0.5 10^3/uL (0.1-1.4); ABSOLUTE NEUT (AUTO) 4.4 10^3/uL (1.7-8.2); BASOPHILS % (AUTO) 1.1 % (0-2); EOSINOPHILS % (AUTO) 2.2 % (0-6); HEMATOCRIT 39.8 % (36.0-47.0); HEMOGLOBIN 12.9 g/dL (12.0-15.5); HGB HCT DIFFERENCE -1.1; LYMPHOCYTES % (AUTO) 27.2 % (13-45); MEAN CORPUSCULAR HEMOGLOBIN 27.8 pg (27.0-33.4); MEAN CORPUSCULAR HGB CONC 32.5 g/dL (32.0-36.0); MEAN CORPUSCULAR VOLUME 86 fl (80-97); MONOCYTES % (AUTO) 6.8 % (3-13); RED BLOOD COUNT 4.65 10^6/uL (3.72-5.28); RED CELL DISTRIBUTION WIDTH 15.3 % (11.5-14.0); SEGMENTED NEUTROPHILS % (AUTO) 62.7 % (42-78)
[2016-09-22 18:24] LABS: AMORPHOUS SEDIMENT,URINE TRACE /HPF; APPEARANCE,URINE CLOUDY; BILIRUBIN,URINE NEGATIVE (NEGATIVE); GLUCOSE, URINE NEGATIVE (NEGATIVE); KETONES,URINE NEGATIVE (NEGATIVE); LEUKOCYTE ESTERASE,URINE NEGATIVE (NEGATIVE); NITRITE,URINE NEGATIVE (NEGATIVE); PROTEIN,URINE 30 mg/dL (NEGATIVE); URINE SPECIFIC GRAVITY 1.018; UROBILINOGEN,URINE NEGATIVE mg/dL (<2.0)
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
[2016-09-22 20:32] LABS: ALANINE AMINOTRANSFERASE 35 U/L (9-52); ALBUMIN 3.8 g/dL (3.5-5.0); ALKALINE PHOSPHATASE 73 U/L (38-126); ANION GAP 8 (5-19); ASPARTATE AMINO TRANSFERASE 18 U/L (14-36); BILIRUBIN,DIRECT 0.3 mg/dL (0.0-0.4); BILIRUBIN,TOTAL 0.4 mg/dL (0.2-1.3); BLOOD UREA NITROGEN 16 mg/dL (7-20); CALCIUM 9.4 mg/dL (8.4-10.2); CARBON DIOXIDE 32 mmol/L (22-30); CHLORIDE 102 mmol/L (98-107); CREATININE RESULT 0.73 mg/dL (0.52-1.25); GLUCOSE 84 mg/dL (75-110); LIPASE 82.8 U/L (23-300); POTASSIUM 4.4 mmol/L (3.6-5.0); SODIUM 141.7 mmol/L (137-145); TOTAL PROTEIN 6.8 g/dL (6.3-8.2)
[2016-09-22 21:02] VITALS: BP 153/91
== END 2016-09-22 22:07 | disposition home or self-care (01) ==
LOC: ER 16:03
DX: Z76.5 Malingerer [conscious simulation] (principal); G89.29 Other chronic pain; R10.9 Unspecified abdominal pain; R19.7 Diarrhea, unspecified; I10 Essential (primary) hypertension; J44.9 Chronic obstructive pulmonary disease, unspecified; Z90.49 Acquired absence of other specified parts of digestive tract; Z87.891 Personal history of nicotine dependence; Z87.442 Personal history of urinary calculi; Z98.51 Tubal ligation status
CPT/HCPCS: 36415; 80053; 81001; 83690; 85025; 99284

== ENCOUNTER 2017-01-07 12:27 | Inpatient (IN) | payer MEDICARE ==
[2017-01-07] MEDS ORDERED: NORMAL SALINE 1000 ML 1,000 ML IV ONE (13:11)
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
--- NOTE | 2017-01-07 13:35 | RADIOLOGY REPORT (SQ) ---
EXAM DESCRIPTION: CT HEAD WITHOUT COMPLETED DATE/TIME: 01/07/2017 1:27 pm REASON FOR STUDY: DIZZY, FALL, HEAD INJURY COMPARISON: 08/14/2016. TECHNIQUE: Axial images acquired through the brain without intravenous contrast. Images reviewed wi th bone, brain and subdural windows. Images stored on PACS. All CT scanners at this facility use dose modulation, iterative reconstruction, and/or weight based d osing when appropriate to reduce radiation dose to as low as reasonably achievable (ALARA). [facility]: Dose Right [facility]: CareDose [facility]: Dose Right [facility]: Teradose 4D [facility]: [place] RADIATION DOSE: Up-to-date CT equipment and radiation dose reduction techniques were employed. CTDIv ol: 64.6 mGy. DLP: 1163 mGy-cm. mGy. LIMITATIONS: None. FINDINGS: VENTRICLES: Normal size and contour. CEREBRUM: No masses. No hemorrhage. No midline shift. No evidence for acute infarction. Normal gra y/white matter differentiation. No areas of low density in the white matter. CEREBELLUM: No masses. No hemorrhage. No alteration of density. No evidence for acute infarction. EXTRAAXIAL SPACES: No fluid collections. No masses. ORBITS AND GLOBE: No intra- or extraconal masses. Normal contour of globe without masses. CALVARIUM: No fracture. PARANASAL SINUSES: No fluid or mucosal thickening. SOFT TISSUES: No mass or hematoma. OTHER: No other significant finding. IMPRESSION: NORMAL BRAIN CT WITHOUT CONTRAST. EVIDENCE OF ACUTE STROKE: NO. COMMENT: Quality ID # [id number]: Final reports with documentation of one or more dose reduction techniques (e.g., Automated exposure control, adjustment of the mA and/or kV according to patient size, use of iterative reconstruction technique) TECHNICAL DOCUMENTATION: JOB ID: [id number]- All Rights Reserved
[2017-01-07 14:09] LABS: ABSOLUTE BASOPHILS # (AUTO) 0.1 10^3/uL (0.0-0.2); ABSOLUTE EOSINOPHILS # (AUTO) 0.2 10^3/uL (0.0-0.6); ABSOLUTE LYMPHOCYTES (AUTO) 1.5 10^3/uL (0.5-4.7); ABSOLUTE MONOCYTES (AUTO) 0.3 10^3/uL (0.1-1.4); ABSOLUTE NEUT (AUTO) 3.8 10^3/uL (1.7-8.2); BASOPHILS % (AUTO) 1.1 % (0-2); HEMATOCRIT 36.7 % (36.0-47.0); HEMOGLOBIN 12.2 g/dL (12.0-15.5); HGB HCT DIFFERENCE -0.1; LYMPHOCYTES % (AUTO) 24.8 % (13-45); MEAN CORPUSCULAR HEMOGLOBIN 28.7 pg (27.0-33.4); MEAN CORPUSCULAR HGB CONC 33.2 g/dL (32.0-36.0); MEAN CORPUSCULAR VOLUME 87 fl (80-97); MONOCYTES % (AUTO) 5.5 % (3-13); RED BLOOD COUNT 4.24 10^6/uL (3.72-5.28); RED CELL DISTRIBUTION WIDTH 13.7 % (11.5-14.0); SEGMENTED NEUTROPHILS % (AUTO) 64.6 % (42-78); WHITE BLOOD COUNT 5.9 10^3/uL (4.0-10.5)
[2017-01-07 14:14] LABS: PROTHROMBIN TIME 11.7 SEC (11.4-15.4)
[2017-01-07 14:15] LABS: PARTIAL THROMBOPLASTIN TIME 27.9 SEC (23.5-35.8)
[2017-01-07 14:29] LABS: ALANINE AMINOTRANSFERASE 23 U/L (9-52); ALBUMIN 3.9 g/dL (3.5-5.0); ALKALINE PHOSPHATASE 76 U/L (38-126); ANION GAP 10 (5-19); ASPARTATE AMINO TRANSFERASE 24 U/L (14-36); BILIRUBIN,DIRECT 0.3 mg/dL (0.0-0.4); BILIRUBIN,TOTAL 0.4 mg/dL (0.2-1.3); BLOOD UREA NITROGEN 9 mg/dL (7-20); CALCIUM 8.7 mg/dL (8.4-10.2); CARBON DIOXIDE 28 mmol/L (22-30); CHLORIDE 105 mmol/L (98-107); CREATINE KINASE 40 U/L (30-135); CREATININE RESULT 0.73 mg/dL (0.52-1.25); GLUCOSE 84 mg/dL (75-110); POTASSIUM 4.3 mmol/L (3.6-5.0); SODIUM 143.3 mmol/L (137-145)
[2017-01-07] MEDS ORDERED: KETOROLAC TROMETHAMINE 60 MG/2 ML SDV IM ONE (14:36)
[2017-01-07 14:41] LABS: CREATINE KINASE MB 0.83 ng/mL (<4.55)
[2017-01-07 14:43] LABS: TROPONIN I < 0.012 ng/mL
[2017-01-07 15:18] LABS: APPEARANCE,URINE SLIGHTLY-CLOUDY; BILIRUBIN,URINE NEGATIVE (NEGATIVE); GLUCOSE, URINE NEGATIVE (NEGATIVE); KETONES,URINE NEGATIVE (NEGATIVE); LEUKOCYTE ESTERASE,URINE NEGATIVE (NEGATIVE); NITRITE,URINE NEGATIVE (NEGATIVE); PROTEIN,URINE NEGATIVE (NEGATIVE); URINE SPECIFIC GRAVITY 1.011; UROBILINOGEN,URINE NEGATIVE mg/dL (<2.0)
[2017-01-07 15:39] LABS: URINE BARBITURATES SCREEN NEGATIVE; URINE METHADONE SCREEN NEGATIVE; URINE OPIATES LOW NEGATIVE; URINE PHENCYCLIDINE SCREEN NEGATIVE
--- NOTE | 2017-01-07 17:24 | RADIOLOGY REPORT (SQ) ---
EXAM DESCRIPTION: CHEST PA/LAT COMPLETED DATE/TIME: 01/07/2017 5:01 pm REASON FOR STUDY: ALTERED COMPARISON: 08/14/2016 EXAM PARAMETERS: NUMBER OF VIEWS: two views TECHNIQUE: Digital Frontal and Lateral radiographic views of the chest acquired. RADIATION DOSE: NA LIMITATIONS: none FINDINGS: LUNGS AND PLEURA: No opacities, masses or pneumothorax. No pleural effusion. MEDIASTINUM AND HILAR STRUCTURES: No masses or contour abnormalities. HEART AND VASCULAR STRUCTURES: Heart normal size. No evidence for failure. BONES: No acute findings. HARDWARE: None in the chest. OTHER: No other significant finding. IMPRESSION: NO SIGNIFICANT RADIOGRAPHIC FINDING IN THE CHEST. TECHNICAL DOCUMENTATION: JOB ID: [id number] [employer]- All Rights Reserved
[2017-01-07] MEDS ORDERED: MECLIZINE HCL 25 MG TABLET PO ONE (17:35)
[2017-01-07] MEDS ORDERED: ASPIRIN 325 MG TABLET PO ONE (19:34)
[2017-01-07] MEDS ORDERED: ONDANSETRON HCL INJ/PF 4 MG/2 ML SDV IV PRN (19:54)
[2017-01-07] MEDS ORDERED: ACETAMINOPHEN 325 MG TABLET PO PRN (19:54)
[2017-01-07] MEDS ORDERED: LABETALOL HCL INJ 20 MG/4 ML DISP.SYRIN IV PRN (19:54)
[2017-01-07] MEDS ORDERED: TEMAZEPAM 15 MG CAPSULE PO PRN (19:54)
--- NOTE | 2017-01-07 21:12 | RADIOLOGY REPORT (SQ) ---
EXAM DESCRIPTION: MRI HEAD WITHOUT COMPLETED DATE/TIME: 01/07/2017 8:53 pm REASON FOR STUDY: ataxia, vertigo COMPARISON: None. TECHNIQUE: Multiplanar imaging includes non-contrasted T1, T2, FLAIR, and diffusion with ADC map seq uences. Images stored on PACS. LIMITATIONS: None. FINDINGS: ANATOMY: No anomalies. Normal vascular flow voids. Pituitary fossa normal. CSF SPACES: Normal in size and contour. No hemorrhage. CEREBRUM: Sulci and gyri normal in size and contour. Normal white matter signal on FLAIR imaging. No evidence of hemorrhage, mass, or extraaxial fluid collection. POSTERIOR FOSSA: No signal alteration. No hemorrhage. No edema, masses or mass effect. Internal santi tory canals, cerebello-pontine angles, mastoids normal. DIFFUSION IMAGING: Negative for acute or sub-acute infarction. ORBITS: No masses. Globes normal. PARANASAL SINUSES: No fluid levels. Mucosa normal. OTHER: No other significant finding. IMPRESSION: NORMAL MRI OF THE BRAIN WITHOUT INTRAVENOUS GADOLINIUM CONTRAST. EVIDENCE OF ACUTE STROKE: NO. TECHNICAL DOCUMENTATION: JOB ID: [id number]- All Rights Reserved
[2017-01-07] MEDS ORDERED: MORPHINE SULFATE 10 MG/ML INJ IV ONE (21:34)
[2017-01-07] MEDS ORDERED: NORMAL SALINE 1000 ML 2,000 ML IV ONE (21:34)
[2017-01-07] MEDS ORDERED: (PENDING PHARMACY ID) (Trazodone Hcl [Trazodone Hcl] 300 MG) PO SCH (22:00)
[2017-01-07] MEDS ORDERED: (PENDING PHARMACY ID) (Oxcarbazepine [Oxcarbazepine] 300 MG) PO SCH (22:00)
[2017-01-07] MEDS ORDERED: (PENDING PHARMACY ID) (Alprazolam [Alprazolam] 1 MG) PO SCH (22:00)
[2017-01-07 22:14] LABS: CREATINE KINASE MB 0.74 ng/mL (<4.55)
[2017-01-07 22:18] LABS: TROPONIN I < 0.012 ng/mL
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
[2017-01-07] MEDS: GUAIFENESIN 600 MG TABLET.SA PO SCH (23:33)
[2017-01-07] MEDS: TRAZODONE HCL 50 MG TABLET PO SCH (23:34)
[2017-01-07] MEDS: DULOXETINE HCL 30 MG CAPSULE.DR PO SCH (23:35)
[2017-01-07] MEDS: OXCARBAZEPINE 150 MG TABLET PO SCH (23:36)
[2017-01-07] MEDS: ATORVASTATIN CALCIUM 40 MG TABLET PO SCH (23:36)
[2017-01-07] MEDS: ALPRAZOLAM 0.5 MG TABLET PO SCH (23:37)
[2017-01-07] MEDS: GABAPENTIN 100 MG CAPSULE PO SCH (23:37)
[2017-01-07] MEDS: NICOTINE 14 MG/24 HR PATCH.TD24 TD SCH (23:38)
[2017-01-07] MEDS: HEPARIN SOD (PORCINE) 5,000 UNIT/ML 1 ML SYRINGE SUBCUT SCH (23:38)
[2017-01-08] MEDS: HYDROCODONE/ACETAMINOPHEN 5-325 MG TABLET PO PRN ×2 (04:31→10:21)
[2017-01-08 04:44] LABS: ABSOLUTE EOSINOPHILS # (AUTO) 0.3 10^3/uL (0.0-0.6); ABSOLUTE LYMPHOCYTES (AUTO) 1.7 10^3/uL (0.5-4.7); ABSOLUTE MONOCYTES (AUTO) 0.4 10^3/uL (0.1-1.4); ABSOLUTE NEUT (AUTO) 2.5 10^3/uL (1.7-8.2); BASOPHILS % (AUTO) 0.5 % (0-2); EOSINOPHILS % (AUTO) 5.3 % (0-6); HEMATOCRIT 33.3 % (36.0-47.0); HEMOGLOBIN 11.1 g/dL (12.0-15.5); LYMPHOCYTES % (AUTO) 35.3 % (13-45); MEAN CORPUSCULAR HGB CONC 33.4 g/dL (32.0-36.0); MEAN CORPUSCULAR VOLUME 87 fl (80-97); MONOCYTES % (AUTO) 8.3 % (3-13); RED BLOOD COUNT 3.83 10^6/uL (3.72-5.28); RED CELL DISTRIBUTION WIDTH 13.6 % (11.5-14.0); SEGMENTED NEUTROPHILS % (AUTO) 50.6 % (42-78); WHITE BLOOD COUNT 4.8 10^3/uL (4.0-10.5)
[2017-01-08 05:04] LABS: ANION GAP 7 (5-19); BLOOD UREA NITROGEN 9 mg/dL (7-20); CALCIUM 8.4 mg/dL (8.4-10.2); CARBON DIOXIDE 30 mmol/L (22-30); CHLORIDE 108 mmol/L (98-107); CHOLESTEROL 125.87 mg/dL (0-200); CREATININE RESULT 0.71 mg/dL (0.52-1.25); Direct HDL 38 mg/dL (>40); GLUCOSE 96 mg/dL (75-110); POTASSIUM 4.1 mmol/L (3.6-5.0); SODIUM 144.7 mmol/L (137-145); TRIGLYCERIDES 241 mg/dL (<150)
[2017-01-08 05:10] LABS: CREATINE KINASE MB 0.62 ng/mL (<4.55)
[2017-01-08 05:14] LABS: TROPONIN I < 0.012 ng/mL
[2017-01-08 05:15] LABS: DIRECT LDL 61 mg/dL (<100)
[2017-01-08 05:19] LABS: VLDL CHOLESTEROL 48.2 mg/dL (10-31)
[2017-01-08] MEDS: GABAPENTIN 100 MG CAPSULE PO SCH (05:37)
[2017-01-08] MEDS: HEPARIN SOD (PORCINE) 5,000 UNIT/ML 1 ML SYRINGE SUBCUT SCH ×3 (05:40→22:11)
[2017-01-08] MEDS ORDERED: (PENDING PHARMACY ID) (Omeprazole [Omeprazole] 1 CAP) PO SCH (10:00)
[2017-01-08] MEDS ORDERED: ASPIRIN 325 MG TABLET, ENT COATED PO SCH (10:00)
[2017-01-08] MEDS ORDERED: LANSOPRAZOLE 15 MG TAB.RAP.DR PO SCH (10:00)
[2017-01-08] MEDS: OXCARBAZEPINE 150 MG TABLET PO SCH ×2 (10:20→22:19)
[2017-01-08] MEDS: ALPRAZOLAM 0.5 MG TABLET PO SCH ×2 (10:20→22:20)
[2017-01-08] MEDS: DULOXETINE HCL 30 MG CAPSULE.DR PO SCH ×2 (10:20→22:18)
[2017-01-08] MEDS: CHOLECALCIFEROL (D3) 1,000 UNIT TABLET PO SCH (10:21)
[2017-01-08] MEDS: NORMAL SALINE 1000 ML 1,000 ML IV PRN ×2 (10:24→17:50)
[2017-01-08] MEDS: GUAIFENESIN 600 MG TABLET.SA PO SCH ×2 (10:25→22:21)
[2017-01-08 11:27] LABS: CREATINE KINASE MB 0.78 ng/mL (<4.55)
[2017-01-08 11:29] LABS: TROPONIN I < 0.012 ng/mL
[2017-01-08] MEDS: MORPHINE SULFATE 10 MG/ML INJ IV PRN ×3 (13:14→22:03)
[2017-01-08] MEDS: BACLOFEN 10 MG TABLET PO SCH ×2 (13:14→17:14)
[2017-01-08] MEDS ORDERED: MECLIZINE HCL 12.5 MG TABLET PO PRN (14:10)
--- NOTE | 2017-01-08 14:14 | PDOC PROGRESS REPORT ---
Subjective Progress Note for:: 01/08/17 Subjective:: Patient is a 51-year-old female with various medical problems presenting with ataxia dizziness and fall. Patient was recently restarted on a antipsychotic medication which may be the result of her symptoms. Patient stroke workup has been negative thus far. Patient continues to complain about having a headache and having extreme dizziness which is different from before. She did well with physical therapy and was very unsteady on her feet however she states she has a walker at home. Physical Exam Vital Signs: Temp Pulse Resp BP Pulse Ox 97.3 F 71 12 140/73 H 90 L 01/08/17 07:31 01/08/17 08:00 01/08/17 08:00 01/08/17 08:00 01/08/17 08:00 Intake & Output 01/07/17 01/08/17 01/09/17 06:59 06:59 06:59 Intake Total 1798 Output Total 0 Balance 1798 Weight 84.1 kg General appearance: PRESENT: no acute distress, obese Head exam: PRESENT: normocephalic Eye exam: PRESENT: EOMI. ABSENT: scleral icterus Ear exam: PRESENT: normal external ear exam Mouth exam: PRESENT: moist Neck exam: ABSENT: carotid bruit, JVD, lymphadenopathy, thyromegaly Respiratory exam: PRESENT: clear to auscultation ross, unlabored. ABSENT: rales , rhonchi, wheezes Cardiovascular exam: PRESENT: RRR. ABSENT: diastolic murmur, rubs, systolic murmur Pulses: PRESENT: normal dorsalis pedis pul Vascular exam: PRESENT: normal capillary refill GI/Abdominal exam: PRESENT: normal bowel sounds, soft. ABSENT: distended, guarding, mass, organolmegaly, rebound, tenderness Rectal exam: PRESENT: deferred Extremities exam: PRESENT: full ROM. ABSENT: calf tenderness, clubbing, pedal edema Neurological exam: PRESENT: alert, awake, oriented to person, oriented to place , oriented to time, oriented to situation, CN II-XII grossly intact. ABSENT: motor sensory deficit Psychiatric exam: PRESENT: appropriate affect, normal mood. ABSENT: homicidal ideation, suicidal ideation Skin exam: PRESENT: dry, intact, warm, other - Is covering majority of the patient's body. Patient does have missing fingers on her right hand.. ABSENT: cyanosis, rash Results Laboratory Results: 01/08/17 04:08 01/08/17 04:08 01/08/17 01/08/17 04:08 04:08 WBC 4.8 RBC 3.83 Hgb 11.1 L Hct 33.3 L MCV 87 MCH 29.0 MCHC 33.4 RDW 13.6 Plt Count 191 Seg Neutrophils % 50.6 Lymphocytes % 35.3 Monocytes % 8.3 Eosinophils % 5.3 Basophils % 0.5 Absolute Neutrophils 2.5 Absolute Lymphocytes 1.7 Absolute Monocytes 0.4 Absolute Eosinophils 0.3 Absolute Basophils 0.0 Sodium 144.7 Potassium 4.1 Chloride 108 H Carbon Dioxide 30 Anion Gap 7 BUN 9 Creatinine 0.71 Est GFR ( Amer) > 60 Est GFR (Non-Af Amer) > 60 Glucose 96 Calcium 8.4 Triglycerides 241 H Cholesterol 125.87 LDL Cholesterol Direct 61 VLDL Cholesterol 48.2 H HDL Cholesterol 38 L 01/07/17 01/07/17 01/08/17 21:45 21:45 04:08 Creatine Kinase 36 29 L CK-MB (CK-2) 0.74 Troponin I < 0.012 01/08/17 01/08/17 01/08/17 04:08 10:29 10:29 Creatine Kinase 41 CK-MB (CK-2) 0.62 0.78 Troponin I < 0.012 < 0.012 Impressions: Head MRI 01/07/17 00:00 IMPRESSION: NORMAL MRI OF THE BRAIN WITHOUT INTRAVENOUS GADOLINIUM CONTRAST. EVIDENCE OF ACUTE STROKE: NO. Head CT 01/07/17 13:09 IMPRESSION: NORMAL BRAIN CT WITHOUT CONTRAST. EVIDENCE OF ACUTE STROKE: NO. Chest X-Ray 01/07/17 15:39 IMPRESSION: NO SIGNIFICANT RADIOGRAPHIC FINDING IN THE CHEST. Assessment & Plan - Diagnosis (1) COPD (chronic obstructive pulmonary disease) Qualifiers: COPD type: unspecified COPD Qualified Code(s): J44.9 - Chronic obstructive pulmonary disease, unspecified Is this a current diagnosis for this admission?: Yes Plan: Patient showing no signs of COPD exacerbation. We will continue to monitor. (2) Dizziness Is this a current diagnosis for this admission?: Yes Plan: She continues to feel dizzy. Patient unsteady on her feet while working with physical therapy. Will continue meclizine 12.5 mg p.o. 3 times daily. (3) Nicotine addiction Qualifiers: Nicotine product type: other Substance use status: uncomplicated Qualified Code(s): F17.290 - Nicotine dependence, other tobacco product, uncomplicated Is this a current diagnosis for this admission?: Yes Plan: Patient on nicotine patch. Patient counseled on smoking cessation. (4) Obesity Qualifiers: Obesity type: due to excess calories Obesity classification: adult class 1 (BMI 30 ? 34.9) Body mass index: BMI 32.0-32.9 Is this a current diagnosis for this admission?: Yes Plan: Patient counseled on diet and physical activity. Patient advised that her weight could affect her respiratory status and she does have a history of COPD. (5) TIA (transient ischemic attack) Qualifiers: Transient cerebral ischemia type: vertebrobasilar artery syndrome Qualified Code(s): G45.0 - Vertebro-basilar artery syndrome Is this a current diagnosis for this admission?: Yes Plan: Patient being worked up for possible TIA. This will have to be her posterior circulation that would cause her to have dizziness. So far her MRI and CT head are negative. Patient cardiac echo has been completed but not read still awaiting carotid Dopplers. Patient currently on aspirin and statin. (6) Bipolar affective disorder Qualifiers: Active/Remission status: remission status unspecified Qualified Code(s): F31.9 - Bipolar disorder, unspecified Is this a current diagnosis for this admission?: Yes Plan: Continue current medications. (7) Headache Is this a current diagnosis for this admission?: Yes Plan: Patient currently has a headache. She does not describe it as a migraine. Does appear to be a tension headache. Will start patient on muscle relaxant, magnesium, gabapentin. Patient states that morphine helps however concerned about using morphine for headache as this can actually cause a headache. Will continue to monitor for improvement. - Time Time Spent with patient: 15-24 minutes Medications reviewed and adjusted accordingly: Yes Anticipated discharge: Home Within: within 24 hours - Inpatient Certification Medical Necessity: Other - Patient dizziness is causing patient to be unsteady on her feet. Will continue to monitor for 24 more hours patient may be improved and more stable for discharge in the morning.
[2017-01-08] MEDS ORDERED: ONDANSETRON HCL INJ/PF 4 MG/2 ML SDV IV PRN (15:00)
[2017-01-08] MEDS ORDERED: TEMAZEPAM 15 MG CAPSULE PO PRN (15:00)
--- NOTE | 2017-01-08 16:03 | RADIOLOGY REPORT (SQ) ---
EXAM DESCRIPTION: CAROTID DOPPLER COMPLETED DATE/TIME: 01/08/2017 3:13 pm REASON FOR STUDY: tia COMPARISON: None. TECHNIQUE: Grayscale ultrasound, Doppler velocity and spectra, and color Doppler images acquired of the extra-cranial carotid and vertebral arteries. Images stored on PACS. LIMITATIONS: Study is slightly limited by tortuosity of the internal carotid arteries. . FINDINGS: RIGHT CAROTID CCA Velocities: Within normal limits. ICA Velocities Peak systolic 86cm/s. End diastolic 40cm/s. Proximal ICA/CCA peak systolic ratio 1.2. Tortuous internal carotid artery. LEFT CAROTID CCA Velocities: Within normal limits. ICA Velocities Peak systolic 132cm/s. End diastolic 74cm/s. Proximal ICA/CCA peak systolic ratio 2.2. Tortuous internal carotid artery. VERTEBRAL ARTERIES: Antegrade flow. Normal waveforms. SUBCLAVIAN ARTERIES: No finding. OTHER: No other significant finding. IMPRESSION: No hemodynamically significant stenosis is seen. The study is limited by tortuosity of the vessels. Consider MRA or CTA for further evaluation if clinically indicated. COMMENT: Quality ID #[id number]: Velocity criteria are extrapolated from the diameter data as defined by t he Society of Radiologists in Ultrasound Consensus Conference. Radiology 2003: 229; 340-346. TECHNICAL DOCUMENTATION: JOB ID: [id number] [employer]- All Rights Reserved
--- NOTE | 2017-01-08 21:53 | EKG REPORT ---
SEVERITY:- ABNORMAL ECG - SINUS RHYTHM LEFT VENTRICULAR HYPERTROPHY BORDERLINE PROLONGED QT INTERVAL : Confirmed by: Alethea Conner 08-Jan-2017 21:52:06
[2017-01-08] MEDS: NICOTINE 14 MG/24 HR PATCH.TD24 TD SCH (22:00)
[2017-01-08] MEDS: GABAPENTIN 300 MG CAPSULE PO SCH (22:12)
[2017-01-08] MEDS: TRAZODONE HCL 50 MG TABLET PO SCH (22:14)
[2017-01-08] MEDS: ATORVASTATIN CALCIUM 40 MG TABLET PO SCH (22:21)
[2017-01-09] MEDS: HYDROCODONE/ACETAMINOPHEN 5-325 MG TABLET PO PRN (03:31)
[2017-01-09] MEDS: NORMAL SALINE 1000 ML 1,000 ML IV PRN ×2 (03:33→08:45)
[2017-01-09] MEDS: HEPARIN SOD (PORCINE) 5,000 UNIT/ML 1 ML SYRINGE SUBCUT SCH ×2 (05:26→17:29)
[2017-01-09] MEDS ORDERED: LANSOPRAZOLE 15 MG TAB.RAP.DR PO SCH (06:00)
[2017-01-09] MEDS ORDERED: ASPIRIN 325 MG TABLET, ENT COATED PO SCH (10:00)
[2017-01-09] MEDS ORDERED: MAGNESIUM OXIDE 400 MG TABLET PO SCH (10:00)
[2017-01-09] MEDS: OXCARBAZEPINE 150 MG TABLET PO SCH (10:42)
[2017-01-09] MEDS: BACLOFEN 10 MG TABLET PO SCH ×2 (10:43→17:29)
[2017-01-09] MEDS: ALPRAZOLAM 0.5 MG TABLET PO SCH (10:43)
[2017-01-09] MEDS: DULOXETINE HCL 30 MG CAPSULE.DR PO SCH (10:43)
[2017-01-09] MEDS: CHOLECALCIFEROL (D3) 1,000 UNIT TABLET PO SCH (10:43)
[2017-01-09] MEDS: GUAIFENESIN 600 MG TABLET.SA PO SCH (10:44)
[2017-01-09] MEDS: GABAPENTIN 300 MG CAPSULE PO SCH (10:44)
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
[2017-01-09 16:32] VITALS: BP 142/73
--- NOTE | 2017-01-09 17:04 | XCELERA REPORT ---
[address] [address] Transthoracic Echocardiogram Report Name: MATTHEW SALCIDO Age: 51 yrs Gender: Female : 1965 Patient Status: Inpatient Patient Location: [address] [place] [address] Study Date: 01/08/2017 09:16 AM Height: 63 in Weight: 181 lb BSA: 1.9 m2 Procedure: A two-dimensional transthoracic echocardiogram with color flow and Doppler was performed. Study Quality: Fair. Reason For Study: LVH / TIA History: LVH / TIA. Ordering Physician: FLORY MIDDLETON Performed By: Rachel Calhoun Interpretation Summary There is no obvious cardiac source of embolus noted on this transthoracic echocardiogram. Follow-up with a POLA is suggested if cardiac source is still suspected. The left ventricle is normal in size. There is normal left ventricular wall thickness. LV EF is 65% Left ventricular systolic function is normal. LV diastolic function not assessed. The left ventricular wall motion is normal. There is no thrombus. The left atrial size is normal. There is no evidence of mitral valve prolapse. There is no vegetation seen on the mitral valve. There is no mitral valve stenosis. There is a mild amount of mitral regurgitation There is no aortic valve stenosis There is no LVOT obstruction. No aortic regurgitation is present. There is no tricuspid stenosis. There is a trace amount of tricuspid regurgitation Right ventricular systolic pressure is normal. RVSP is 22 mm of Hg , with RA mean of5. There is no pericardial effusion. There is no obvious cardiac source of embolus noted on this transthoracic echocardiogram. Follow-up with a POLA is suggested if cardiac source is still suspected MMode/2D Measurements & Calculations RVDd: 2.5 cm LVIDd: 4.4 cm FS: 37.1 % Ao root diam: 2.9 cm IVSd: 1.1 cm LVIDs: 2.8 cm EDV(Teich): 87.4 ml LVPWd: 1.1 cm ESV(Teich): 28.6 ml Ao root area: 6.4 cm2 EF(Teich): 67.2 % LA dimension: 3.9 cm Doppler Measurements & Calculations MV E max irina: MV P1/2t max irina: Ao V2 max: LV V1 max P.3 cm/sec 96.3 cm/sec 134.7 cm/sec 3.0 mmHg MV A max irina: MV P1/2t: 60.4 msec Ao max PG: LV V1 max: 92.3 cm/sec 7.3 mmHg 86.4 cm/sec MV E/A: 1.0 MVA(P1/2t): 3.6 cm2 MV dec slope: 466.5 cm/sec2 PA V2 max: TR max irina: 83.9 cm/sec 204.3 cm/sec PA max PG: TR max P.7 mmHg 2.8 mmHg Left Ventricle The left ventricle is normal in size. There is normal left ventricular wall thickness. LV EF is 65%. Left ventricular systolic function is normal. LV diastolic function not assessed. The left ventricular wall motion is normal. There is no thrombus. Right Ventricle The right ventricle is normal in size and function. Atria The right atrium is normal. The left atrial size is normal. The interatrial septum is intact with no evidence for an atrial septal defect. Mitral Valve There is no evidence of mitral valve prolapse. There is no vegetation seen on the mitral valve. There is no mitral valve stenosis. There is a mild amount of mitral regurgitation. Aortic Valve There is no aortic valvular vegetation. There is no aortic valve stenosis. There is no LVOT obstruction. No aortic regurgitation is present. Tricuspid Valve There is no tricuspid stenosis. There is a trace amount of tricuspid regurgitation. Right ventricular systolic pressure is normal. RVSP is 22 mm of Hg , with RA mean of5. Pulmonic Valve There is no pulmonic valvular stenosis. There is no pulmonic valvular regurgitation. Great Vessels The aortic root is normal size. Effusions There is no pericardial effusion. : FLORY MIDDLETONmhan, Saida
== END 2017-01-09 17:52 | disposition home health service (06) | DRG 149 ==
LOC: ER 12:27 → EH 19:40 → UNDOADMIN 19:40 → EH 19:52 → 3W 22:37
PROVIDERS: ADMIT Family Medicine; ATTEND Family Medicine
DX: R42 Dizziness and giddiness (principal); T50.995A Adverse effect of other drugs, medicaments and biological substances, initial encounter; R51 Headache; W18.00XA Striking against unspecified object with subsequent fall, initial encounter; W18.39XA Other fall on same level, initial encounter; Y93.9 Activity, unspecified; Y92.019 Unspecified place in single-family (private) house as the place of occurrence of the external cause; Z66 Do not resuscitate; I10 Essential (primary) hypertension; J44.9 Chronic obstructive pulmonary disease, unspecified; F43.10 Post-traumatic stress disorder, unspecified; F31.9 Bipolar disorder, unspecified; E66.9 Obesity, unspecified; F17.290 Nicotine dependence, other tobacco product, uncomplicated; Z68.34 Body mass index [BMI] 34.0-34.9, adult
CPT/HCPCS: 36415; 70450; 70551; 71020; 80048; 80053; 80061; 80307; 81001; 82140; 82550; 82553; 83036; 83880; 84484; 85025; 85610; 85730; 93005; 93010; 93306; 93880; 96372; 99285; G8978-GP; G8979-GP; G8987-GO; G8988-GO; J1644; J1885; J2270; J3490; J7030

== ENCOUNTER → 2017-01-15 | Outpatient (CLI) | payer MEDICARE | LOC: SP 08:05 | PROVIDERS: ATTEND Internal Medicine | DX: R42 Dizziness and giddiness (principal); Z53.8 Procedure and treatment not carried out for other reasons ==

== ENCOUNTER 2017-03-28 15:02 | Emergency (ER) | payer MEDICARE ==
[2017-03-28 15:38] VITALS: BP 102/74
[2017-03-28] MEDS ORDERED: KETOROLAC TROMETHAMINE 60 MG/2 ML SDV IM ONE (17:04)
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
--- NOTE | 2017-03-28 17:59 | RADIOLOGY REPORT (SQ) ---
EXAM DESCRIPTION: FOOT LEFT COMPLETE COMPLETED DATE/TIME: 03/28/2017 5:28 pm REASON FOR STUDY: toe pain COMPARISON: None. NUMBER OF VIEWS: Three views. TECHNIQUE: AP, lateral and oblique radiographic images acquired of the left foot. LIMITATIONS: None. FINDINGS: MINERALIZATION: Normal. BONES: Mildly displaced oblique fracture of the 4th digit proximal phalanx diaphysis without intra-ar ticular extension. JOINTS: No effusions. SOFT TISSUES: No soft tissue swelling. No foreign body. OTHER: No other significant finding. IMPRESSION: Mildly displaced oblique fracture of the 4th digit proximal phalanx without intra-articu lar extension. TECHNICAL DOCUMENTATION: JOB ID: [id number] [employer]- All Rights Reserved
--- NOTE | 2017-03-28 18:32 | ER Document Report ---
ED Extremity Problem, Lower - General Chief Complaint: Foot Pain Stated Complaint: LEFT FOOT PAIN Time Seen by Provider: 03/28/17 17:01 Mode of Arrival: Wheelchair TRAVEL OUTSIDE OF THE [place] IN LAST 30 DAYS: No - HPI Patient complains to provider of: Injury Location: 4th Toe Occurred: This morning Where: Home Severity: Moderate Notes: Patient arrives with complaints of left fourth toe pain. She states that she broke her toe approximately 1 month ago. She was seen at an urgent care approximately 1 week ago was told that the toe had not healed and was given a special shoe, but the patient states that the shoe broke. She states that this morning she hit the corner of a wall and has increased pain. She denies any other injuries. She denies any numbness, Twyla, weakness. No chest pain or shortness of breath. No nausea, vomiting, diarrhea. She denies any other complaints at this time. - Related Data Allergies/Adverse Reactions: hydromorphone HCl [From Dilaudid] Allergy (Verified 03/28/17 15:05) prednisone Allergy (Verified 03/28/17 15:05) Psychosis tetracycline [Tetracycline] Allergy (Verified 03/28/17 15:05) Past Medical History - General Information source: Patient - Social History Smoking Status: Unknown if Ever Smoked Family History: None, CAD, DM, Hypertension - Past Medical History Cardiac Medical History: Reports: Hx Hypertension Denies: Hx Coronary Artery Disease, Hx Heart Attack Pulmonary Medical History: Reports: Hx COPD, Hx Pneumonia Denies: Hx Asthma, Hx Bronchitis Neurological Medical History: Denies: Hx Cerebrovascular Accident, Hx Seizures Renal/ Medical History: Reports: Hx Kidney Stones. Denies: Hx Peritoneal Dialysis GI Medical History: Reports: Hx Diverticulitis Musculoskeltal Medical History: Reports Hx Arthritis, Reports Hx Musculoskeletal Trauma Psychiatric Medical History: Reports: Hx Bipolar Disorder, Hx Depression, Hx Post Traumatic Stress Disorder Traumatic Medical History: Reports: Hx Pneumothorax Past Surgical History: Reports: Hx Abdominal Surgery - abscess, SB resection , Hx Adenoidectomy, Hx Appendectomy, Hx Section, Hx Cholecystectomy, Hx Tonsillectomy - and adenoids, Hx Tubal Ligation, Other - Exploratory laparotomy with small bowel resection for trauma. - Immunizations Immunizations up to date: Yes Hx Diphtheria, Pertussis, Tetanus Vaccination: Yes Review of Systems - Review of Systems -: Yes All other systems reviewed and negative Physical Exam - Vital signs Vitals: Temp Pulse Resp BP Pulse Ox 98.1 F 95 20 102/74 98 03/28/17 15:38 03/28/17 15:38 03/28/17 15:38 03/28/17 15:38 03/28/17 15:38 - Notes Notes: GENERAL: alert, cooperative, nontoxic, no distress. HEAD: normocephalic, atraumatic EYES: conjunctiva pink without discharge, no external redness or swelling. EARS: no external swelling, no external redness NOSE: atraumatic, no external swelling MOUTH/THROAT: mucous membranes moist and pink NECK: soft, supple, full range of motion, no meningismus. CHEST: no distress, lungs clear and equal throughout. No wheezing, rales, rhonchi. CARDIAC: regular rate and rhythm, no murmur, normal capillary refill, normal pulses. BACK: full range of motion, no CVA tenderness. EXTREMITIES: Swelling and tenderness to the left fourth toe. No obvious deformity. Normal cap refill and sensation distally. Remainder of the foot exam is normal. NEURO: alert and oriented 3, no focal deficits, full range of motion of all extremities. PYSCH: appropriate mood, affect. Patient is cooperative. SKIN: pink, warm, dry, no rash. Course - Re-evaluation Re-evalutation: 03/28/17 18:29 Patient is nontoxic appearing with stable vitals. The patient states she broke her toe about a month ago and then kicked a wall this morning and the pain is now back. She denies any other injuries. She is noted to have a fracture of the proximal fourth phalanx. There is no deformity on exam. Patient will be placed in a postop shoe and will be given a prescription for tramadol with instructions to follow-up with [facility] at the next available appointment. Follow- up sooner for increased pain, fever, numbness, Twyla, weakness, any further concerns. The patient's emergency department workup and current diagnosis were explained to the patient and or family. Follow-up instructions were provided. Medications if prescribed were discussed. Instructions for when to return to the emergency department including specific worrisome symptoms were discussed with the patient and/or family. - Vital Signs Vital signs: Temp Pulse Resp BP Pulse Ox 98.1 F 95 20 102/74 98 03/28/17 15:38 03/28/17 15:38 03/28/17 15:38 03/28/17 15:38 03/28/17 15:38 Procedures - Immobilization left foot Pre-Proc Neuro Vasc Exam: Normal Immobilizer type: Post-op shoe Performed by: PCT Post-Proc Neuro Vasc Exam: Normal Alignment checked and good: Yes Discharge - Discharge Clinical Impression: Fracture of fourth toe, left, closed Qualifiers: Encounter type: subsequent encounter Fracture healing: with nonunion Qualified Code(s): S92.502K - Displaced unspecified fracture of left lesser toe(s), subsequent encounter for fracture with nonunion Condition: Stable Disposition: HOME, SELF-CARE Instructions: Fractured Toe ([facility]) Additional Instructions: Take medications as prescribed. Wear shoe as needed for comfort. Follow-up with orthopedics if not better in 1 week, sooner for increased pain, fever, numbness, tingling, weakness, any further concerns. The medication you were prescribed today may cause drowsiness. Do not drive or operate heavy machinery while taking this medication. Prescriptions: Tramadol HCl 50 mg PO TID PRN #10 tablet PRN Reason: Forms: Smoking Cessation Education Referrals: PAULINE REYES MD [Primary Care Provider] - Follow up as needed BEATRICE HERNANDEZ DO [ACTIVE STAFF] - Follow up as needed
== END 2017-03-28 18:52 | disposition home or self-care (01) ==
LOC: ER 15:02
DX: S92.502K Displaced unspecified fracture of left lesser toe(s), subsequent encounter for fracture with nonunion (principal); M79.672 Pain in left foot; I10 Essential (primary) hypertension; Z88.6 Allergy status to analgesic agent; Z87.442 Personal history of urinary calculi; Z90.49 Acquired absence of other specified parts of digestive tract
CPT/HCPCS: 99283; 96372; 73630; J1885

== ENCOUNTER → 2017-04-14 | Outpatient (CLI) | payer MEDICARE | LOC: LAB 13:35 | PROVIDERS: ATTEND Internal Medicine | DX: E11.9 Type 2 diabetes mellitus without complications (principal) | CPT/HCPCS: 36415; 83036 ==

== ENCOUNTER 2017-05-24 16:57 | Emergency (ER) | payer MEDICARE ==
[2017-05-24] MEDS ORDERED: NORMAL SALINE 1000 ML 1,000 ML IV ONE ×2 (17:35→20:37)
[2017-05-24] MEDS ORDERED: ONDANSETRON HCL INJ/PF 4 MG/2 ML SDV IV ONE (17:37)
--- NOTE | 2017-05-24 17:38 | ER Document Report ---
ED Medical Screen (RME) - General Chief Complaint: Nausea/Vomiting/Diarrhea Stated Complaint: HEADACHE Time Seen by Provider: 05/24/17 17:08 Mode of Arrival: Medic Information source: Patient Notes: 52 y.o female with a PMHx of COPD and PSHx resection of small bowel of presents to the ED with CLARK, nausea, diarrhea, abd pain prominently on the RT side and RT sided lower back pain. Patient also notes pain to her RT hand and RT foot and seeing black spots "larger than floaters". Pt reports that she had N/D and a CLARK since 05/19/17, and states that her stool is black. Pt denies any vomiting, CP, problems with urination. She denies being on any blood thinners. I have greeted and performed a rapid initial assessment of the patient. A comprehensive ED assessment and evaluation of the patient, analysis of test results, and completion of the medical decision making process will be conducted by additional ED providers. TRAVEL OUTSIDE OF THE [place] IN LAST 30 DAYS: No - Related Data Allergies/Adverse Reactions: hydromorphone HCl [From Dilaudid] Allergy (Verified 05/24/17 16:58) prednisone Allergy (Verified 05/24/17 16:58) Psychosis tetracycline [Tetracycline] Allergy (Verified 05/24/17 16:58) Past Medical History - General Information source: Patient - Social History Chew tobacco use (# tins/day): No Frequency of alcohol use: Occasional Drug Abuse: None - Past Medical History Cardiac Medical History: Reports: Hx Hypertension Pulmonary Medical History: Reports: Hx COPD, Hx Pneumonia Renal/ Medical History: Reports: Hx Kidney Stones. Denies: Hx Peritoneal Dialysis GI Medical History: Reports: Hx Diverticulitis Musculoskeltal Medical History: Reports Hx Arthritis, Reports Hx Musculoskeletal Trauma Psychiatric Medical History: Reports: Hx Bipolar Disorder, Hx Depression, Hx Post Traumatic Stress Disorder Traumatic Medical History: Reports: Hx Pneumothorax Past Surgical History: Reports: Hx Abdominal Surgery - abscess, SB resection , Hx Adenoidectomy, Hx Appendectomy, Hx Section, Hx Cholecystectomy, Hx Tonsillectomy - and adenoids, Hx Tubal Ligation, Other - Exploratory laparotomy with small bowel resection for trauma. - Immunizations Immunizations up to date: Yes Hx Diphtheria, Pertussis, Tetanus Vaccination: Yes History of Influenza Vaccine for 12/2016 - 05/2017 Season: No Review of Systems - Review of Systems Constitutional: No symptoms reported EENT: See HPI, Other - Vision change: black spots "larger than floaters" Cardiovascular: See HPI. denies: Chest pain Respiratory: No symptoms reported Gastrointestinal: See HPI, Abdominal pain, Diarrhea, Nausea, Black stools. denies: Vomiting Genitourinary: See HPI - Denies any urinary issues Female Genitourinary: No symptoms reported Musculoskeletal: See HPI, Back pain, Other - RT hand and foot Skin: No symptoms reported Hematologic/Lymphatic: No symptoms reported Neurological/Psychological: See HPI, Headaches Physical Exam - Vital signs Vitals: Temp Pulse Resp BP Pulse Ox 98.6 F 72 16 126/81 H 99 05/24/17 17:02 05/24/17 17:02 05/24/17 17:02 05/24/17 17:02 05/24/17 17:02 - Notes Notes: Physical Exam: General: Alert, appears well. HEENT: Normocephalic. Atraumatic. PERRLA. Extraocular movements intact. Oropharynx clear. Neck: Supple. Respiratory: No respiratory distress. Abdominal: Point tenderness to RLQ. Extremities: Moves all four extremities. Neurological: Normal cognition. AAOx4. Normal speech. Psychological: Normal affect. Normal Mood. Skin: Warm. Dry. Normal color. Course - Vital Signs Vital signs: Temp Pulse Resp BP Pulse Ox 98.6 F 72 16 126/81 H 99 05/24/17 17:02 05/24/17 17:02 05/24/17 17:02 05/24/17 17:02 05/24/17 17:02 Scribe Documentation - Scribe Written by Sandro:: Karen Brooke, Sandro 05/24/17 [id number] acting as scribe for :: Alejandro
[2017-05-24 18:32] LABS: APPEARANCE,URINE CLOUDY; BILIRUBIN,URINE NEGATIVE (NEGATIVE); COLOR,URINE YELLOW; GLUCOSE, URINE NEGATIVE (NEGATIVE); KETONES,URINE NEGATIVE (NEGATIVE); LEUKOCYTE ESTERASE,URINE TRACE (NEGATIVE); NITRITE,URINE NEGATIVE (NEGATIVE); PROTEIN,URINE NEGATIVE (NEGATIVE); URINE SPECIFIC GRAVITY 1.019; UROBILINOGEN,URINE NEGATIVE mg/dL (<2.0)
[2017-05-24] MEDS ORDERED: HALOPERIDOL LACTATE INJ 5 MG/1 ML VIAL IV ONE (18:38)
--- NOTE | 2017-05-24 20:45 | ER Document Report ---
ED General - General Chief Complaint: Nausea/Vomiting/Diarrhea Stated Complaint: HEADACHE Time Seen by Provider: 05/24/17 17:08 Mode of Arrival: Medic Notes: Patient is a 52-year-old female with past medical history of chronic pain, fibromyalgia, prior quintero to her bilateral upper extremities and neck, and multiple surgical procedures in the past including an appendectomy, cholecystectomy, and partial small bowel resection who presents with multiple complaints. Patient reports that for the past 4 days she has had a dull, constant throbbing bitemporal headache with associated phonophobia, photophobia. Nothing improves or worsens the headache. She states this feels similar to prior migraine headaches that she has had in the past. She also notes that she has had persistent nausea, vomiting and diarrhea. She states that she has had inability to tolerate oral fluids for the past 2 days. She has not seen a primary care doctor regarding today's concerns. She denies any syncope. No chest pain or shortness of breath. No known sick contacts. TRAVEL OUTSIDE OF THE [place] IN LAST 30 DAYS: No - Related Data Allergies/Adverse Reactions: hydromorphone HCl [From Dilaudid] Allergy (Verified 05/24/17 16:58) prednisone Allergy (Verified 05/24/17 16:58) Psychosis tetracycline [Tetracycline] Allergy (Verified 05/24/17 16:58) Past Medical History - General Information source: Patient - Social History Smoking Status: Current Every Day Smoker Chew tobacco use (# tins/day): No Frequency of alcohol use: Occasional Drug Abuse: None Lives with: Alone Family History: None, CAD, DM, Hypertension Patient has suicidal ideation: No Patient has homicidal ideation: No - Past Medical History Cardiac Medical History: Reports: Hx Hypertension Denies: Hx Coronary Artery Disease, Hx Heart Attack Pulmonary Medical History: Reports: Hx COPD, Hx Pneumonia Denies: Hx Asthma, Hx Bronchitis Neurological Medical History: Denies: Hx Cerebrovascular Accident, Hx Seizures Renal/ Medical History: Reports: Hx Kidney Stones. Denies: Hx Peritoneal Dialysis GI Medical History: Reports: Hx Diverticulitis Musculoskeltal Medical History: Reports Hx Arthritis, Reports Hx Musculoskeletal Trauma Psychiatric Medical History: Reports: Hx Bipolar Disorder, Hx Depression, Hx Post Traumatic Stress Disorder Traumatic Medical History: Reports: Hx Pneumothorax Past Surgical History: Reports: Hx Abdominal Surgery - abscess, SB resection 10/ 30/17, Hx Adenoidectomy, Hx Appendectomy, Hx Section, Hx Cholecystectomy, Hx Tonsillectomy - and adenoids, Hx Tubal Ligation, Other - Exploratory laparotomy with small bowel resection for trauma. - Immunizations Immunizations up to date: Yes Hx Diphtheria, Pertussis, Tetanus Vaccination: Yes Review of Systems - Review of Systems Notes: Constitutional: Negative for fever. HENT: Negative for sore throat. Eyes: Negative for visual changes. Cardiovascular: Negative for chest pain. Respiratory: Negative for shortness of breath. Gastrointestinal: Positive for abdominal pain, nausea, vomiting Genitourinary: Negative for dysuria. Musculoskeletal: Negative for back pain. Skin: Negative for rash. Neurological: Positive for headache 10 point ROS negative except as marked above and in HPI. Physical Exam - Vital signs Vitals: Temp Pulse Resp BP Pulse Ox 98.6 F 72 16 126/81 H 99 05/24/17 17:02 05/24/17 17:02 05/24/17 17:02 05/24/17 17:02 05/24/17 17:02 Interpretation: Normal Notes: PHYSICAL EXAMINATION: GENERAL: Appears moderately uncomfortable but no acute distress HEAD: Atraumatic, normocephalic. EYES: Pupils equal round and reactive to light, extraocular movements intact, sclera anicteric, conjunctiva are normal. ENT: nares patent, oropharynx clear without exudates. Moderately dry mucous membranes. NECK: Normal range of motion, supple without lymphadenopathy LUNGS: Breath sounds clear to auscultation bilaterally and equal. No wheezes rales or rhonchi. HEART: Regular rate and rhythm without murmurs ABDOMEN: Soft, nontender, normoactive bowel sounds. No guarding, no rebound. No masses appreciated. EXTREMITIES: Normal range of motion, no pitting or edema. No cyanosis. NEUROLOGICAL: Face symmetric. Tongue protrudes midline. Extraocular motions intact. Pupils are 2 mm and equally reactive. Normal speech, normal gait. 5 out of 5 strength in both the distal and proximal upper and lower extremities bilaterally. Sensation is grossly intact throughout. Finger to nose testing normal. Pronator drift normal.. PSYCH: Normal mood, normal affect. SKIN: Warm, Dry, normal turgor, no rashes or lesions noted. Course - Re-evaluation Re-evalutation: 05/24/17 20:38 Patient presents with multiple complaints including headache, nausea, vomiting, diarrhea, generalized abdominal pain, right hip pain, and feeling lightheaded. The symptoms been worsening over the last 4 days. Patient overall clinically appears nontoxic, moderately dehydrated but in no acute distress. She has no focal abdominal tenderness on examination has had multiple abdominal surgeries including a partial small bowel resection, appendectomy, hysterectomy, and gallbladder resection. Patient's abdominal exam itself is extremely benign without any focal tenderness, rebound or guarding. I do not suspect an acute pancreatitis, mesenteric ischemia, bowel obstruction, or acute diverticulitis based on exam and history. I do not see an indication for emergent CT imaging of her abdomen and pelvis at this time. Will proceed with labs, fluids, and haloperidol to treat her headache nausea and generalized body pain. Will then reassess. 05/24/17 23:52 Labs unremarkable. Patient has had resolution of all of her symptoms and feels much better at this time. Repeat abdominal exam remains without any focal abdominal tenderness. She has been able to tolerate oral intake without any further vomiting or discomfort. Headache has completely resolved. She remains without any focal neurologic deficits. At this time will discharge with return precautions and follow-up recommendations. Verbal discharge instructions given a the bedside and opportunity for questions given. Medication warnings reviewed. Patient is in agreement with this plan and has verbalized understanding of return precautions and the need for primary care follow-up in the next 24-72 hours. - Vital Signs Vital signs: Temp Pulse Resp BP Pulse Ox 98.6 F 72 16 126/81 H 99 05/24/17 17:02 05/24/17 17:02 05/24/17 17:02 05/24/17 17:02 05/24/17 17:02 - Laboratory Result Diagrams: 05/24/17 22:45 05/24/17 22:45 Laboratory results interpreted by me: 05/24/17 05/24/17 05/24/17 17:45 22:45 22:45 RDW 14.5 H Chloride 113 H Glucose 73 L Total Protein 5.7 L Albumin 3.3 L Ur Leukocyte Esterase TRACE H - Diagnostic Test Radiology reviewed: Reports reviewed Discharge - Discharge Clinical Impression: Right hip pain Headache Qualifiers: Headache type: unspecified Headache chronicity pattern: acute headache Intractability: not intractable Qualified Code(s): R51 - Headache Nausea and vomiting Qualifiers: Vomiting type: unspecified Vomiting Intractability: unspecified Qualified Code( s): R11.2 - Nausea with vomiting, unspecified Diarrhea Qualifiers: Diarrhea type: unspecified type Qualified Code(s): R19.7 - Diarrhea, unspecified Abdominal pain Qualifiers: Abdominal location: generalized Qualified Code(s): R10.84 - Generalized abdominal pain Condition: Good Disposition: HOME, SELF-CARE Additional Instructions: Please return to the emergency room immediately if you experience any concerning symptoms including high fevers, severe headache, chest pain, difficulty breathing, abdominal pain, slurred speech, numbness or weakness in your arms or legs, or any other symptom that concerns you. Referrals: PAULINE REYES MD [Primary Care Provider] - Follow up as needed
--- NOTE | 2017-05-24 21:13 | RADIOLOGY REPORT (SQ) ---
EXAM DESCRIPTION: HIP RIGHT AP/LATERAL COMPLETED DATE/TIME: 05/24/2017 9:04 pm REASON FOR STUDY: pain COMPARISON: None. NUMBER OF VIEWS: Two views. TECHNIQUE: AP pelvis and additional frog-leg view of the right hip. LIMITATIONS: None. FINDINGS: MINERALIZATION: Normal. RIGHT HIP: No fracture or dislocation. No worrisome bone lesions. No contour deformity. No joint sp ana rosa narrowing. LEFT HIP: No fracture or dislocation. No worrisome bone lesions. PUBIS AND ISCHIUM: No fracture. PELVIS: No fracture. SACRUM: No fracture or dislocation. No worrisome bone lesions. LOWER LUMBAR SPINE: Spondylosis. SOFT TISSUES: No findings. OTHER: No other significant finding. IMPRESSION: NEGATIVE STUDY OF THE RIGHT HIP. NO EXPLANATION FOR PAIN. TECHNICAL DOCUMENTATION: JOB ID: [id number] [employer]- All Rights Reserved Reading location - IP/workstation name: [email or web address]
[2017-05-24 23:05] LABS: ABSOLUTE BASOPHILS # (AUTO) 0.1 10^3/uL (0.0-0.2); ABSOLUTE EOSINOPHILS # (AUTO) 0.1 10^3/uL (0.0-0.6); ABSOLUTE LYMPHOCYTES (AUTO) 2.1 10^3/uL (0.5-4.7); ABSOLUTE MONOCYTES (AUTO) 0.5 10^3/uL (0.1-1.4); ABSOLUTE NEUT (AUTO) 4.6 10^3/uL (1.7-8.2); BASOPHILS % (AUTO) 0.7 % (0-2); HEMATOCRIT 38.1 % (36.0-47.0); HEMOGLOBIN 12.6 g/dL (12.0-15.5); LYMPHOCYTES % (AUTO) 28.7 % (13-45); MEAN CORPUSCULAR HEMOGLOBIN 29.2 pg (27.0-33.4); MEAN CORPUSCULAR HGB CONC 32.9 g/dL (32.0-36.0); MEAN CORPUSCULAR VOLUME 89 fl (80-97); MONOCYTES % (AUTO) 6.2 % (3-13); PLATELET COUNT 261 10^3/uL (150-450); RED CELL DISTRIBUTION WIDTH 14.5 % (11.5-14.0); SEGMENTED NEUTROPHILS % (AUTO) 62.4 % (42-78); TOTAL CELLS COUNTED % (AUTO) 100 %; WHITE BLOOD COUNT 7.3 10^3/uL (4.0-10.5)
[2017-05-24 23:25] LABS: ALANINE AMINOTRANSFERASE 31 U/L (9-52); ALBUMIN 3.3 g/dL (3.5-5.0); ALKALINE PHOSPHATASE 63 U/L (38-126); ANION GAP 6 (5-19); ASPARTATE AMINO TRANSFERASE 15 U/L (14-36); BILIRUBIN,DIRECT 0.2 mg/dL (0.0-0.4); BILIRUBIN,TOTAL 0.2 mg/dL (0.2-1.3); BLOOD UREA NITROGEN 12 mg/dL (7-20); CALCIUM 8.4 mg/dL (8.4-10.2); CARBON DIOXIDE 22 mmol/L (22-30); CHLORIDE 113 mmol/L (98-107); GLUCOSE 73 mg/dL (75-110); LIPASE 42.2 U/L (23-300); POTASSIUM 3.7 mmol/L (3.6-5.0); SODIUM 141.2 mmol/L (137-145); TOTAL PROTEIN 5.7 g/dL (6.3-8.2)
[2017-05-25 01:35] VITALS: BP 131/88
== END 2017-05-25 00:57 | disposition home or self-care (01) ==
LOC: ER 16:57
DX: M25.551 Pain in right hip (principal); R11.2 Nausea with vomiting, unspecified; R51 Headache; R19.7 Diarrhea, unspecified; R10.84 Generalized abdominal pain; G89.29 Other chronic pain; F17.200 Nicotine dependence, unspecified, uncomplicated; I10 Essential (primary) hypertension; Z88.6 Allergy status to analgesic agent; Z87.442 Personal history of urinary calculi; Z90.49 Acquired absence of other specified parts of digestive tract; Z98.51 Tubal ligation status
CPT/HCPCS: 99284; 96361; 96374; 36415; 83690; 85025; 80053; 81001; 73502; J1630; J7030

== ENCOUNTER 2017-06-03 17:33 | Emergency (ER) | payer MEDICARE ==
[2017-06-03] MEDS ORDERED: ONDANSETRON 4 MG TAB.RAPDIS PO ONE (19:03)
[2017-06-03] MEDS ORDERED: KETOROLAC TROMETHAMINE 60 MG/2 ML SDV IM ONE (19:03)
--- NOTE | 2017-06-03 19:04 | ER Document Report ---
ED Medical Screen (RME) - General Chief Complaint: Nausea/Vomiting Stated Complaint: ABDOMINAL PAIN/VOMITING Time Seen by Provider: 06/03/17 19:02 Notes: Patient with multiple chronic medical problems. She states she is recently been switched from all TRAM to Motrin at home. She states she was instructed by her primary care physician and home health nurse to come the emergency department to get pain relief today. She states she is in severe pain all over her whole body. She also states she is unable to tolerate any type of solids or liquids due to vomiting. TRAVEL OUTSIDE OF THE [place] IN LAST 30 DAYS: No - Related Data Allergies/Adverse Reactions: hydromorphone HCl [From Dilaudid] Allergy (Verified 05/24/17 16:58) prednisone Allergy (Verified 05/24/17 16:58) Psychosis tetracycline [Tetracycline] Allergy (Verified 05/24/17 16:58) Past Medical History - Social History Frequency of alcohol use: Occasional Drug Abuse: None - Past Medical History Cardiac Medical History: Reports: Hx Hypertension Denies: Hx Coronary Artery Disease, Hx Heart Attack Pulmonary Medical History: Reports: Hx COPD, Hx Pneumonia Denies: Hx Asthma, Hx Bronchitis Neurological Medical History: Denies: Hx Cerebrovascular Accident, Hx Seizures Renal/ Medical History: Reports: Hx Kidney Stones. Denies: Hx Peritoneal Dialysis GI Medical History: Reports: Hx Diverticulitis Musculoskeltal Medical History: Reports Hx Arthritis, Reports Hx Musculoskeletal Trauma Psychiatric Medical History: Reports: Hx Bipolar Disorder, Hx Depression, Hx Post Traumatic Stress Disorder Traumatic Medical History: Reports: Hx Pneumothorax Past Surgical History: Reports: Hx Abdominal Surgery - abscess, SB resection , Hx Adenoidectomy, Hx Appendectomy, Hx Section, Hx Cholecystectomy, Hx Tonsillectomy - and adenoids, Hx Tubal Ligation, Other - Exploratory laparotomy with small bowel resection for trauma. - Immunizations Immunizations up to date: Yes Hx Diphtheria, Pertussis, Tetanus Vaccination: Yes History of Influenza Vaccine for 12/2016 - 05/2017 Season: No Physical Exam - Vital signs Vitals: Temp Pulse Resp BP Pulse Ox 98.4 F 107 H 14 129/89 H 95 06/03/17 17:58 06/03/17 17:58 06/03/17 17:58 06/03/17 17:58 06/03/17 17:58 Course - Vital Signs Vital signs: Temp Pulse Resp BP Pulse Ox 98.4 F 107 H 14 129/89 H 95 06/03/17 17:58 06/03/17 17:58 06/03/17 17:58 06/03/17 17:58 06/03/17 17:58 Doctor's Discharge - Discharge Referrals: PAULINE REYES MD [Primary Care Provider] - Follow up as needed
[2017-06-03] MEDS ORDERED: MORPHINE SULFATE 10 MG/ML INJ IM ONE (19:24)
[2017-06-03 19:50] LABS: ABSOLUTE BASOPHILS # (AUTO) 0.1 10^3/uL (0.0-0.2); ABSOLUTE EOSINOPHILS # (AUTO) 0.1 10^3/uL (0.0-0.6); ABSOLUTE LYMPHOCYTES (AUTO) 2.1 10^3/uL (0.5-4.7); ABSOLUTE MONOCYTES (AUTO) 0.6 10^3/uL (0.1-1.4); ABSOLUTE NEUT (AUTO) 7.9 10^3/uL (1.7-8.2); BASOPHILS % (AUTO) 1.1 % (0-2); EOSINOPHILS % (AUTO) 0.9 % (0-6); HEMATOCRIT 43.2 % (36.0-47.0); HEMOGLOBIN 14.3 g/dL (12.0-15.5); LYMPHOCYTES % (AUTO) 19.7 % (13-45); MEAN CORPUSCULAR HEMOGLOBIN 29.1 pg (27.0-33.4); MEAN CORPUSCULAR HGB CONC 33.1 g/dL (32.0-36.0); MEAN CORPUSCULAR VOLUME 88 fl (80-97); MONOCYTES % (AUTO) 5.3 % (3-13); PLATELET COUNT 367 10^3/uL (150-450); RED BLOOD COUNT 4.91 10^6/uL (3.72-5.28); RED CELL DISTRIBUTION WIDTH 14.3 % (11.5-14.0); TOTAL CELLS COUNTED % (AUTO) 100 %; WHITE BLOOD COUNT 10.8 10^3/uL (4.0-10.5)
[2017-06-03 20:11] LABS: ALANINE AMINOTRANSFERASE 24 U/L (9-52); ALBUMIN 4.4 g/dL (3.5-5.0); ALKALINE PHOSPHATASE 75 U/L (38-126); ANION GAP 10 (5-19); ASPARTATE AMINO TRANSFERASE 18 U/L (14-36); BILIRUBIN,DIRECT 0.2 mg/dL (0.0-0.4); BILIRUBIN,TOTAL 0.2 mg/dL (0.2-1.3); BLOOD UREA NITROGEN 15 mg/dL (7-20); CALCIUM 9.8 mg/dL (8.4-10.2); CARBON DIOXIDE 25 mmol/L (22-30); CHLORIDE 106 mmol/L (98-107); GLUCOSE 74 mg/dL (75-110); POTASSIUM 4.4 mmol/L (3.6-5.0); SODIUM 140.6 mmol/L (137-145); TOTAL PROTEIN 7.4 g/dL (6.3-8.2)
[2017-06-03 20:40] LABS: APPEARANCE,URINE CLOUDY; BILIRUBIN,URINE NEGATIVE (NEGATIVE); CALCIUM OXALATE CRYSTALS,URINE MODERATE /HPF; COLOR,URINE YELLOW; GLUCOSE, URINE NEGATIVE (NEGATIVE); KETONES,URINE NEGATIVE (NEGATIVE); LEUKOCYTE ESTERASE,URINE TRACE (NEGATIVE); NITRITE,URINE NEGATIVE (NEGATIVE); PROTEIN,URINE NEGATIVE (NEGATIVE); URINE SPECIFIC GRAVITY 1.024; UROBILINOGEN,URINE NEGATIVE mg/dL (<2.0)
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
[2017-06-03] MEDS: RINGERS SOLUTION 1,000 ML IV PRN (21:45)
[2017-06-03 22:09] LABS: URINE AMPHETAMINES SCREEN NEGATIVE; URINE BARBITURATES SCREEN NEGATIVE; URINE BENZODIAZEPINES SCREEN NEGATIVE; URINE COCAINE SCREEN NEGATIVE; URINE MARIJUANA (THC) SCREEN NEGATIVE; URINE METHADONE SCREEN NEGATIVE; URINE PHENCYCLIDINE SCREEN NEGATIVE
[2017-06-04] MEDS ORDERED: HYDROCODONE/ACETAMINOPHEN 5-325 MG TABLET PO ONE (00:05)
[2017-06-04] MEDS ORDERED: MORPHINE SULFATE 10 MG/ML INJ IV ONE (00:05)
[2017-06-04] MEDS ORDERED: DIPHENHYDRAMINE HCL 25 MG CAPSULE PO ONE (02:09)
[2017-06-04] MEDS: RINGERS SOLUTION 1,000 ML IV PRN (02:17)
[2017-06-04 02:25] VITALS: BP 139/88
== END 2017-06-04 02:20 | disposition home or self-care (01) ==
LOC: ER 17:33
DX: R10.31 Right lower quadrant pain (principal); G89.29 Other chronic pain; R11.2 Nausea with vomiting, unspecified; F17.210 Nicotine dependence, cigarettes, uncomplicated; I10 Essential (primary) hypertension; J44.9 Chronic obstructive pulmonary disease, unspecified
CPT/HCPCS: 99284; 96372; 96361; 96374; 36415; 85025; 80053; 81001; 80307; A9270 ×3; J2270 ×2; S0119

== ENCOUNTER 2017-06-09 15:06 | Emergency (ER) | payer MEDICARE ==
--- NOTE | 2017-06-09 16:04 | ER Document Report ---
ED Medical Screen (RME) - General TRAVEL OUTSIDE OF THE [place] IN LAST 30 DAYS: No <MIS MERCADO - Last Filed: 06/09/17 16:03> <NEIL OSULLIVAN - Last Filed: 06/09/17 18:16> - General Chief Complaint: Abdominal Pain Stated Complaint: ABDOMINAL PAIN Time Seen by Provider: 06/09/17 15:56 Notes: This 52-year-old female patient states she was told by her primary care provider to come the emergency room for workup and evaluation. She complains of a 3 week history of abdominal pain hip and back pain. She was seen here on for this problem. She states since then she has developed severe pain in the right lower quadrant right lateral abdomen and her right lower back up toward the flank region. She states she has explosive mucus filled diarrheal episodes that seem to have coffee grounds in them. I have greeted and performed a rapid initial assessment of this patient. A comprehensive ED assessment and evaluation of the patient, analysis of test results and completion of the medical decision making process will be conducted by additional ED providers. (MIS MERCADO) - Related Data Allergies/Adverse Reactions: hydromorphone HCl [From Dilaudid] Allergy (Verified 06/09/17 15:07) prednisone Allergy (Verified 06/09/17 15:07) Psychosis tetracycline [Tetracycline] Allergy (Verified 06/09/17 15:07) Past Medical History - Social History Frequency of alcohol use: None Drug Abuse: None - Past Medical History Cardiac Medical History: Reports: Hx Hypertension Denies: Hx Coronary Artery Disease, Hx Heart Attack Pulmonary Medical History: Reports: Hx COPD, Hx Pneumonia Denies: Hx Asthma, Hx Bronchitis Neurological Medical History: Denies: Hx Cerebrovascular Accident, Hx Seizures Renal/ Medical History: Reports: Hx Kidney Stones. Denies: Hx Peritoneal Dialysis GI Medical History: Reports: Hx Diverticulitis Musculoskeltal Medical History: Reports Hx Arthritis, Reports Hx Musculoskeletal Trauma Psychiatric Medical History: Reports: Hx Bipolar Disorder, Hx Depression, Hx Post Traumatic Stress Disorder Traumatic Medical History: Reports: Hx Pneumothorax Past Surgical History: Reports: Hx Abdominal Surgery - abscess, SB resection , Hx Adenoidectomy, Hx Appendectomy, Hx Section, Hx Cholecystectomy, Hx Tonsillectomy - and adenoids, Hx Tubal Ligation, Other - Exploratory laparotomy with small bowel resection for trauma. - Immunizations Immunizations up to date: Yes Hx Diphtheria, Pertussis, Tetanus Vaccination: Yes History of Influenza Vaccine for 12/2016 - 05/2017 Season: No <MIS MERCADO - Last Filed: 06/09/17 16:03> - Vital signs Vitals: Temp Pulse Resp BP Pulse Ox 99.3 F 126 H 18 136/81 H 97 06/09/17 15:12 06/09/17 15:12 06/09/17 15:12 06/09/17 15:12 06/09/17 15:12 Course <MIS MERCADO - Last Filed: 06/09/17 16:03> - Laboratory Result Diagrams: 06/09/17 16:52 06/09/17 16:52 <NEIL OSULLIVAN - Last Filed: 06/09/17 18:16> - Re-evaluation Re-evalutation: 06/09/17 18:14 Patient has not been able to provide us with a stool sample so we will send her home with outpatient labs. (NEIL OSULLIVAN) - Vital Signs Vital signs: Temp Pulse Resp BP Pulse Ox 99.3 F 88 18 136/81 H 97 06/09/17 15:12 06/09/17 17:00 06/09/17 15:12 06/09/17 15:12 06/09/17 15:12 - Laboratory Laboratory results interpreted by me: 06/09/17 06/09/17 16:16 16:52 Sodium 136.3 L Carbon Dioxide 20 L Urine Ascorbic Acid 20 H Doctor's Discharge <MIS MERCADO - Last Filed: 06/09/17 16:03> <NEIL OSULLIVAN - Last Filed: 06/09/17 18:16> - Discharge Clinical Impression: Unspecified abdominal pain Qualifiers: Abdominal location: right lower quadrant Qualified Code(s): R10.31 - Right lower quadrant pain Chronic low back pain Qualifiers: Back pain laterality: right Sciatica presence: without sciatica Qualified Code( s): M54.5 - Low back pain Condition: Stable Disposition: HOME, SELF-CARE Instructions: Abdominal Pain ([facility]), Antinausea Medication ([facility]), Low-Fat Diet ( [facility]) Additional Instructions: Maintain adequate fluid and food intake [place] diet (B.R.A.T.) Bananas, rice, apples, toast, etc Zofran as needed tylenol if needed Monitor for any worsening symptoms Rest, ice, heat, massage, stretches Make sure you are staying hydrated enough to urinate and have normal BM's Recheck with your PCM in 2-3 days Schedule consult with gastroenterology for further evaluation and management Return to the ED with any worsening symptoms and/or development of fever, headache, chest pain, palpitations, syncope, shortness of breath, trouble breathing, abdominal pain, n/v/d, blood in stool/urine, weakness, or other worsening symptoms that are concerning to you. Prescriptions: Loperamide HCl [Loperamide] 2 mg PO QID PRN #20 tablet PRN Reason: Ondansetron [Zofran Odt 4 mg Tablet] 1 - 2 tab PO Q4H PRN #15 tab.rapdis PRN Reason: For Nausea/Vomiting Forms: Elevated Blood Pressure, Follow-Up Laboratory Testing Referrals: HANNAH MURCIA MD [ACTIVE STAFF] - Follow up as needed LEOPOLDO POLK MD [ACTIVE STAFF] - Follow up as needed PAULINE REYES MD [ACTIVE STAFF] - Follow up in 3-5 days
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
[2017-06-09 17:09] LABS: APPEARANCE,URINE SLIGHTLY-CLOUDY; BILIRUBIN,URINE NEGATIVE (NEGATIVE); COLOR,URINE YELLOW; GLUCOSE, URINE NEGATIVE (NEGATIVE); KETONES,URINE NEGATIVE (NEGATIVE); LEUKOCYTE ESTERASE,URINE NEGATIVE (NEGATIVE); NITRITE,URINE NEGATIVE (NEGATIVE); PROTEIN,URINE NEGATIVE (NEGATIVE); URINE SPECIFIC GRAVITY 1.012; UROBILINOGEN,URINE NEGATIVE mg/dL (<2.0)
[2017-06-09 17:10] LABS: ABSOLUTE BASOPHILS # (AUTO) 0.1 10^3/uL (0.0-0.2); ABSOLUTE EOSINOPHILS # (AUTO) 0.1 10^3/uL (0.0-0.6); ABSOLUTE LYMPHOCYTES (AUTO) 1.7 10^3/uL (0.5-4.7); ABSOLUTE MONOCYTES (AUTO) 0.5 10^3/uL (0.1-1.4); BASOPHILS % (AUTO) 1.3 % (0-2); EOSINOPHILS % (AUTO) 0.7 % (0-6); HEMATOCRIT 44.8 % (36.0-47.0); HEMOGLOBIN 14.9 g/dL (12.0-15.5); LYMPHOCYTES % (AUTO) 16.5 % (13-45); MEAN CORPUSCULAR HEMOGLOBIN 28.9 pg (27.0-33.4); MEAN CORPUSCULAR HGB CONC 33.2 g/dL (32.0-36.0); MEAN CORPUSCULAR VOLUME 87 fl (80-97); MONOCYTES % (AUTO) 5.2 % (3-13); PLATELET COUNT 346 10^3/uL (150-450); RED BLOOD COUNT 5.14 10^6/uL (3.72-5.28); RED CELL DISTRIBUTION WIDTH 13.9 % (11.5-14.0); SEGMENTED NEUTROPHILS % (AUTO) 76.3 % (42-78); TOTAL CELLS COUNTED % (AUTO) 100 %; WHITE BLOOD COUNT 10.5 10^3/uL (4.0-10.5)
[2017-06-09 17:34] LABS: ALANINE AMINOTRANSFERASE 29 U/L (9-52); ALBUMIN 4.4 g/dL (3.5-5.0); ALKALINE PHOSPHATASE 84 U/L (38-126); ANION GAP 10 (5-19); ASPARTATE AMINO TRANSFERASE 30 U/L (14-36); BILIRUBIN,DIRECT 0.4 mg/dL (0.0-0.4); BILIRUBIN,TOTAL 0.5 mg/dL (0.2-1.3); BLOOD UREA NITROGEN 11 mg/dL (7-20); CALCIUM 9.4 mg/dL (8.4-10.2); CARBON DIOXIDE 20 mmol/L (22-30); CHLORIDE 106 mmol/L (98-107); GLUCOSE 81 mg/dL (75-110); POTASSIUM 4.6 mmol/L (3.6-5.0); SODIUM 136.3 mmol/L (137-145); TOTAL PROTEIN 7.6 g/dL (6.3-8.2)
[2017-06-09 18:42] VITALS: BP 134/77
== END 2017-06-09 18:42 | disposition home or self-care (01) ==
LOC: ER 15:06
DX: R10.31 Right lower quadrant pain (principal); M54.5 Low back pain; G89.29 Other chronic pain; R19.7 Diarrhea, unspecified; I10 Essential (primary) hypertension; J44.9 Chronic obstructive pulmonary disease, unspecified; Z90.49 Acquired absence of other specified parts of digestive tract
CPT/HCPCS: 36415; 80053; 81001; 85025; 99284

== ENCOUNTER 2017-10-14 21:24 | Emergency (ER) | payer MEDICARE ==
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
--- NOTE | 2017-10-15 00:48 | RADIOLOGY REPORT (SQ) ---
EXAM DESCRIPTION: CT HEAD WITHOUT IV CONTRAST COMPLETED DATE/TME: 10/15/2017 00:00 CLINICAL HISTORY: tingling, headache COMPARISON: 01/07/2017 TECHNIQUE: Axial CT of the head obtained from the skull apex to the skull base without contrast. FINDINGS: No acute intracranial hemorrhage identified. No mass, mass effect, shift of the midline, abnormal extra-axial fluid collection or CT evidence of acute ischemic change identified. The ventricular system is unremarkable. No acute abnormalities of the supratentorial white matter, basal ganglia, cerebellum, or brainstem. The visualized paranasal sinuses and the mastoids are clear. No skull fracture identified. Visualized orbits and globes are unremarkable. DLP: 1070.38 mGy-cm IMPRESSION: 1. No acute intracranial abnormality identified. This exam was performed according to our departmental dose-optimization program, which includes automated exposure control, adjustment of the mA and/or kV according to patient size and/or use of iterative reconstruction technique.
[2017-10-15 00:52] LABS: APPEARANCE,URINE CLOUDY; BILIRUBIN,URINE NEGATIVE (NEGATIVE); COLOR,URINE YELLOW; GLUCOSE, URINE NEGATIVE (NEGATIVE); KETONES,URINE NEGATIVE (NEGATIVE); LEUKOCYTE ESTERASE,URINE TRACE (NEGATIVE); NITRITE,URINE NEGATIVE (NEGATIVE); PROTEIN,URINE 30 mg/dL (NEGATIVE); URINE SPECIFIC GRAVITY 1.019; UROBILINOGEN,URINE NEGATIVE mg/dL (<2.0)
[2017-10-15 01:05] LABS: ABSOLUTE BASOPHILS # (AUTO) 0.1 10^3/uL (0.0-0.2); ABSOLUTE EOSINOPHILS # (AUTO) 0.2 10^3/uL (0.0-0.6); ABSOLUTE LYMPHOCYTES (AUTO) 2.2 10^3/uL (0.5-4.7); ABSOLUTE MONOCYTES (AUTO) 0.5 10^3/uL (0.1-1.4); ABSOLUTE NEUT (AUTO) 5.9 10^3/uL (1.7-8.2); BASOPHILS % (AUTO) 1.1 % (0-2); EOSINOPHILS % (AUTO) 1.7 % (0-6); HEMATOCRIT 42.3 % (36.0-47.0); HEMOGLOBIN 14.3 g/dL (12.0-15.5); LYMPHOCYTES % (AUTO) 24.9 % (13-45); MEAN CORPUSCULAR HEMOGLOBIN 29.9 pg (27.0-33.4); MEAN CORPUSCULAR HGB CONC 33.8 g/dL (32.0-36.0); MEAN CORPUSCULAR VOLUME 89 fl (80-97); MONOCYTES % (AUTO) 5.8 % (3-13); PLATELET COUNT 316 10^3/uL (150-450); RED BLOOD COUNT 4.77 10^6/uL (3.72-5.28); RED CELL DISTRIBUTION WIDTH 13.6 % (11.5-14.0); SEGMENTED NEUTROPHILS % (AUTO) 66.5 % (42-78); TOTAL CELLS COUNTED % (AUTO) 100 %; WHITE BLOOD COUNT 8.9 10^3/uL (4.0-10.5)
[2017-10-15 01:17] LABS: ALANINE AMINOTRANSFERASE 26 U/L (9-52); ALBUMIN 4.2 g/dL (3.5-5.0); ALKALINE PHOSPHATASE 81 U/L (38-126); ANION GAP 12 (5-19); ASPARTATE AMINO TRANSFERASE 18 U/L (14-36); BILIRUBIN,DIRECT 0.2 mg/dL (0.0-0.4); BILIRUBIN,TOTAL 0.4 mg/dL (0.2-1.3); BLOOD UREA NITROGEN 14 mg/dL (7-20); CALCIUM 9.6 mg/dL (8.4-10.2); CARBON DIOXIDE 26 mmol/L (22-30); CHLORIDE 105 mmol/L (98-107); GLUCOSE 90 mg/dL (75-110); POTASSIUM 4.3 mmol/L (3.6-5.0); SODIUM 143.2 mmol/L (137-145); TOTAL PROTEIN 7.1 g/dL (6.3-8.2)
[2017-10-15] MEDS ORDERED: TETRACAINE HCL 0.5% OPH SOLN 2 ML OS ONE (01:35)
[2017-10-15] MEDS ORDERED: TETRACAINE HCL 0.5% OPH SOLN 2 ML ONE (01:38)
[2017-10-15] MEDS ORDERED: CEPHALEXIN 500 MG CAPSULE PO ONE (01:43)
--- NOTE | 2017-10-15 01:45 | ER Document Report ---
ED General - General Chief Complaint: Headache Stated Complaint: BAD HEADACHE,PELVIC PAIN,WEAKNESS Time Seen by Provider: 10/14/17 23:06 Notes: Patient is 52-year-old female presents with complaint of an episode where she had a mild headache but also had some pressure behind her left eye. 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 She saw her neurologist earlier this week had another eyedrop. At that time her jugular pressure was 37. Patient denies any fevers. No vomiting. Patient said that she had onset of weakness and numbness that was throughout all 4 extremities and she has felt a little bit weak since. She also has had some intermittent lower abdominal pain with a episode of diarrhea. Patient said she has had chronic recurrent episodes of diarrhea and has had multiple colonoscopies in the past which have been negative except for some diverticulosis. She did not notice any blood in her stool. She notes that she has some burning at the end of urination. No blood in her urine. No abnormal vaginal discharge or bleeding. No weakness that is focally worse on one side of her body versus the other. Some dizziness. Patient mentions history of TIA. I did look up her previous admissions for TIA workup and those workups have been negative and her dizziness symptoms at those times were thought to be related to medication. TRAVEL OUTSIDE OF THE [place] IN LAST 30 DAYS: No - Related Data Allergies/Adverse Reactions: hydromorphone HCl [From Dilaudid] Allergy (Verified 06/09/17 15:07) prednisone Allergy (Verified 06/09/17 15:07) Psychosis tetracycline [Tetracycline] Allergy (Verified 06/09/17 15:07) Past Medical History - Social History Smoking Status: Current Every Day Smoker Frequency of alcohol use: None Drug Abuse: None Family History: None, CAD, DM, Hypertension Patient has suicidal ideation: No Patient has homicidal ideation: No - Past Medical History Cardiac Medical History: Reports: Hx Hypertension Denies: Hx Coronary Artery Disease, Hx Heart Attack Pulmonary Medical History: Reports: Hx COPD, Hx Pneumonia Denies: Hx Asthma, Hx Bronchitis Neurological Medical History: Denies: Hx Cerebrovascular Accident, Hx Seizures Renal/ Medical History: Reports: Hx Kidney Stones. Denies: Hx Peritoneal Dialysis GI Medical History: Reports: Hx Diverticulitis Musculoskeletal Medical History: Reports Hx Arthritis, Reports Hx Musculoskeletal Trauma Psychiatric Medical History: Reports: Hx Bipolar Disorder, Hx Depression, Hx Post Traumatic Stress Disorder Traumatic Medical History: Reports: Hx Pneumothorax Past Surgical History: Reports: Hx Abdominal Surgery - abscess, SB resection , Hx Adenoidectomy, Hx Appendectomy, Hx Section, Hx Cholecystectomy, Hx Tonsillectomy - and adenoids, Hx Tubal Ligation, Other - Exploratory laparotomy with small bowel resection for trauma. - Immunizations Immunizations up to date: Yes Hx Diphtheria, Pertussis, Tetanus Vaccination: Yes Review of Systems - Review of Systems Notes: My Normal Review Basic REVIEW OF SYSTEMS: CONSTITUTIONAL : Denies fever, chills, or sweats. Denies recent illness. EENT: Denies eye, ear, throat, or mouth pain or symptoms. Denies nasal or sinus congestion. CARDIOVASCULAR: Denies chest pain. RESPIRATORY: Denies cough, cold, or chest congestion. Denies shortness of breath, difficulty breathing, or wheezing. GASTROINTESTINAL: Some lower abdominal pain with diarrhea. GENITOURINARY: Some pain at the end of urination. FEMALE GENITOURINARY: Denies vaginal bleeding, abnormal or irregular periods. MUSCULOSKELETAL: Denies neck or back pain or joint pain or swelling. SKIN: Denies rash or skin lesions. NEUROLOGICAL: Denies altered mental status or loss of consciousness. Generalized weakness PSYCHIATRIC: Denies anxiety or stress or depression. ALL OTHER SYSTEMS REVIEWED AND NEGATIVE. Physical Exam - Vital signs Vitals: Temp Pulse Resp BP Pulse Ox 98.2 F 105 H 18 106/50 L 95 10/14/17 21:40 10/14/17 21:40 10/14/17 21:40 10/14/17 21:40 10/14/17 21:40 - Notes Notes: General Appearance: Well nourished, alert, cooperative, no acute distress, no obvious discomfort. Well-appearing. Vitals: reviewed, See vital signs table. Head: no swelling or tenderness to the head Eyes: PERRL, EOMI, Conjuctiva clear. Her ocular pressure on the left eye is 27 [address] Nadir-Pen pressure. Mouth: No decreasd moisture Throat: No tonsillar inflammation, No airway obstruction, No lymphadenopathy Neck: Supple, no neck tenderness, No thyromegaly Lungs: No wheezing, No rales, No rhonci, No accessory muscle use, good air exchange bilaterally. Heart: Normal rate, Regular rythm, No murmur, no rub Abdomen: Normal BS, soft, No rigidity, mild suprapubic and left lower quadrant abdominal tenderness palpation., No guarding, no rebound, no abdominal masses, no organomegaly Extremities: strength 5/5 in all extremities, good pulses in all extremities, no swelling or tenderness in the extremities, no edema. Skin: warm, dry, appropriate color, no rash Neuro: speech clear, oriented x 3, normal affect, responds appropriately to questions. Cranial nerves II through XII are intact. Distal sensation intact. Patient is able stand on her own power and maintain balance without any difficulty. Normal Romberg. No focal weakness or numbness on exam. Course - Re-evaluation Re-evalutation: 10/15/17 01:50 CT scan was ordered in triage. This was negative. Patient's had previous MRIs and MRAs which were all negative. I do not suspect patient having TIA being that her symptoms are global. On exam she does not have any focal neurologic deficits whatsoever. I did recheck her eye pressure being that was high at her last ophthalmology visit. Her eye pressure is improved and is 27. She overall looks very well. Her abdominal exam is very benign. She does not have a leukocytosis. Electrolytes do not have any concerning abnormalities. Urinalysis shows some signs of urinary tract infection. Being that she is having some burning at the end of urination with a small leukocyte ptosis in her urine fluids appropriate place her on antibiotic. I will send her urine for culture. Informed patient that we will be treating her for UTI. I informed her that she should start getting better next 24 hours. I informed her if she is not getting better or she feels like she is having any worsening of her symptoms she must return to the ER immediately for reevaluation. Patient agrees with plan will be discharged home. Dictation of this chart was performed using voice recognition software; therefore, there may be some unintended grammatical errors. - Vital Signs Vital signs: Temp Pulse Resp BP Pulse Ox 98.2 F 105 H 18 106/50 L 95 10/14/17 21:40 10/14/17 21:40 10/14/17 21:40 10/14/17 21:40 10/14/17 21:40 - Laboratory Result Diagrams: 10/15/17 00:50 10/15/17 00:50 Laboratory results interpreted by me: 10/15/17 10/15/17 00:10 00:50 Est GFR (Non-Af Amer) 51 L Urine Protein 30 H Ur Leukocyte Esterase TRACE H Discharge - Discharge Clinical Impression: Weakness UTI (urinary tract infection) Qualifiers: Urinary tract infection type: site unspecified Hematuria presence: without hematuria Qualified Code(s): N39.0 - Urinary tract infection, site not specified Condition: Good Disposition: HOME, SELF-CARE Additional Instructions: Please take the antibiotic as prescribed. You should see improvement in your symptoms over the next 24 hours. Please return to the ER immediately if you do not have improvement in your symptoms or if you have nay worsening of your symptoms whatsoever. Please follow up wiht your doctor on Thursday for reevaluation. Prescriptions: Cephalexin Monohydrate [Keflex 500 mg Capsule] 500 mg PO BID 5 Days #14 capsule Referrals: PAULINE REYES MD [Primary Care Provider] - 10/16/17
[2017-10-15 02:14] VITALS: BP 120/87
--- NOTE | 2017-10-15 11:36 | EKG REPORT ---
SEVERITY:- ABNORMAL ECG - SINUS RHYTHM LEFT VENTRICULAR HYPERTROPHY : Confirmed by: Saida Stanford MD 15-Oct-2017 11:36:20
== END 2017-10-15 02:17 | disposition home or self-care (01) ==
LOC: ER 21:24
DX: R53.1 Weakness (principal); N39.0 Urinary tract infection, site not specified; R51 Headache; R20.0 Anesthesia of skin; R10.30 Lower abdominal pain, unspecified; R19.7 Diarrhea, unspecified; F17.200 Nicotine dependence, unspecified, uncomplicated; I10 Essential (primary) hypertension; J44.9 Chronic obstructive pulmonary disease, unspecified; Z94.7 Corneal transplant status; Z87.19 Personal history of other diseases of the digestive system; Z88.5 Allergy status to narcotic agent; Z88.8 Allergy status to other drugs, medicaments and biological substances; Z88.1 Allergy status to other antibiotic agents
CPT/HCPCS: 93005; 99285; 36415; 87086; 83735; 85025; 80053; 81001; 70450; 93010; A9270

== ENCOUNTER 2017-11-03 16:36 | Emergency (ER) | payer MEDICARE ==
--- NOTE | 2017-11-03 17:42 | ER Document Report ---
ED Medical Screen (RME) - General Chief Complaint: Passed Out Prior to Arrival Stated Complaint: SYNCOPE EPISODE Time Seen by Provider: 11/03/17 17:30 Notes: RAPID MEDICAL EVALUATION DISCLOSURE I have seen this patient as part of a Rapid Medical Evaluation and, if applicable, placed any initially appropriate orders. The patient will be seen and fully evaluated, including a full history and physical exam, by a provider ( in Main ED or Fast Track) when a room becomes available. 52-year-old female here with complaints of generalized weakness, fatigue, syncope ongoing for the past few weeks. She was seen here and told her symptoms were due to a urinary tract infection and was prescribed antibiotics. She has finished the antibiotics however she still has not had any improvement. Yesterday, she had another episode of syncope and fell hitting her head and her neck on the floor. Today she went to her PCP office where her sitting systolic was 90 and her subsequent standing systolic was 70/50. She was given a prescription for a blood pressure gauge and was told to have this filled so she went to [facility] where she had another episode of syncope but does not believe she hit her head today as she did yesterday. She does not know of any new medications over the past few weeks. Her doctor told her today to stop taking her atenolol. She denies any other symptoms. EXAM CTAB RRR Cranial nerves grossly intact Strength 5/5 with intact sensation all extremities Mild inferior midline cervical spine TTP without step-off TRAVEL OUTSIDE OF THE [place] IN LAST 30 DAYS: No - Related Data Allergies/Adverse Reactions: hydromorphone HCl [From Dilaudid] Allergy (Verified 06/09/17 15:07) prednisone Allergy (Verified 06/09/17 15:07) Psychosis tetracycline [Tetracycline] Allergy (Verified 06/09/17 15:07) Past Medical History - Past Medical History Cardiac Medical History: Reports: Hx Hypertension Denies: Hx Coronary Artery Disease, Hx Heart Attack Pulmonary Medical History: Reports: Hx COPD, Hx Pneumonia Denies: Hx Asthma, Hx Bronchitis Neurological Medical History: Denies: Hx Cerebrovascular Accident, Hx Seizures Renal/ Medical History: Reports: Hx Kidney Stones. Denies: Hx Peritoneal Dialysis GI Medical History: Reports: Hx Diverticulitis Musculoskeltal Medical History: Reports Hx Arthritis, Reports Hx Musculoskeletal Trauma Psychiatric Medical History: Reports: Hx Bipolar Disorder, Hx Depression, Hx Post Traumatic Stress Disorder Traumatic Medical History: Reports: Hx Pneumothorax Past Surgical History: Reports: Hx Abdominal Surgery - abscess, SB resection , Hx Adenoidectomy, Hx Appendectomy, Hx Section, Hx Cholecystectomy, Hx Tonsillectomy - and adenoids, Hx Tubal Ligation, Other - Exploratory laparotomy with small bowel resection for trauma. - Immunizations Immunizations up to date: Yes Hx Diphtheria, Pertussis, Tetanus Vaccination: Yes History of Influenza Vaccine for 12/2016 - 05/2017 Season: No Physical Exam - Vital signs Vitals: Temp Pulse Resp BP Pulse Ox 98.1 F 80 16 98/65 L 96 11/03/17 16:43 11/03/17 16:43 11/03/17 16:43 11/03/17 16:43 11/03/17 16:43 Course - Vital Signs Vital signs: Temp Pulse Resp BP Pulse Ox 98.1 F 80 16 98/65 L 96 11/03/17 16:43 11/03/17 16:43 11/03/17 16:43 11/03/17 16:43 11/03/17 16:43 Doctor's Discharge - Discharge Referrals: PAULINE REYES MD [Primary Care Provider] - Follow up as needed
--- NOTE | 2017-11-03 18:03 | RADIOLOGY REPORT (SQ) ---
EXAM DESCRIPTION: CHEST 2 VIEWS COMPLETED DATE/TIME: 11/03/2017 5:57 pm REASON FOR STUDY: hypotension; eval pna COMPARISON: 01/07/2017. EXAM PARAMETERS: NUMBER OF VIEWS: two views TECHNIQUE: Digital Frontal and Lateral radiographic views of the chest acquired. RADIATION DOSE: NA LIMITATIONS: none FINDINGS: LUNGS AND PLEURA: No opacities, masses or pneumothorax. No pleural effusion. MEDIASTINUM AND HILAR STRUCTURES: No masses or contour abnormalities. HEART AND VASCULAR STRUCTURES: Heart normal size. No evidence for failure. BONES: No acute findings. HARDWARE: Clips in the upper abdomen. OTHER: No other significant finding. IMPRESSION: NO ACUTE RADIOGRAPHIC FINDING IN THE CHEST. TECHNICAL DOCUMENTATION: JOB ID: [id number] [employer]- All Rights Reserved Reading location - IP/workstation name: [email or web address]
--- NOTE | 2017-11-03 18:16 | RADIOLOGY REPORT (SQ) ---
EXAM DESCRIPTION: CT HEAD WITHOUT COMPLETED DATE/TIME: 11/03/2017 6:07 pm REASON FOR STUDY: syncope/collapse COMPARISON: 10/15/2017. TECHNIQUE: Axial images acquired through the brain without intravenous contrast. Images reviewed wi th bone, brain and subdural windows. Additional sagittal and coronal reconstructions were generated. Images stored on PACS. All CT scanners at this facility use dose modulation, iterative reconstruction, and/or weight based d osing when appropriate to reduce radiation dose to as low as reasonably achievable (ALARA). [facility]: Dose Right [facility]: CareDose [facility]: Dose Right [facility]: Teradose 4D [facility]: [employer] RADIATION DOSE: CT Rad equipment meets quality standard of care and radiation dose reduction techniq ues were employed. CTDIvol: 53.2 mGy. DLP: 1044 mGy-cm. mGy. LIMITATIONS: None. FINDINGS: VENTRICLES: Normal size and contour. CEREBRUM: No masses. No hemorrhage. No midline shift. No evidence for acute infarction. Normal gra y/white matter differentiation. No areas of low density in the white matter. CEREBELLUM: No masses. No hemorrhage. No alteration of density. No evidence for acute infarction. EXTRAAXIAL SPACES: No fluid collections. No masses. ORBITS AND GLOBE: No intra- or extraconal masses. Normal contour of globe without masses. CALVARIUM: No fracture. PARANASAL SINUSES: No fluid or mucosal thickening. SOFT TISSUES: No mass or hematoma. OTHER: No other significant finding. IMPRESSION: NORMAL BRAIN CT WITHOUT CONTRAST. EVIDENCE OF ACUTE STROKE: NO. COMMENT: Quality ID # [id number]: Final reports with documentation of one or more dose reduction techniques (e.g., Automated exposure control, adjustment of the mA and/or kV according to patient size, use of iterative reconstruction technique) TECHNICAL DOCUMENTATION: JOB ID: [id number] [employer]- All Rights Reserved Reading location - IP/workstation name: [email or web address]
--- NOTE | 2017-11-03 18:17 | RADIOLOGY REPORT (SQ) ---
EXAM DESCRIPTION: CT CERVICAL SPINE WITHOUT COMPLETED DATE/TIME: 11/03/2017 6:07 pm REASON FOR STUDY: syncope/collapse; pain to lower c-spine COMPARISON: 03/31/2016. TECHNIQUE: Axial images acquired through the cervical spine without intravenous contrast. Images re viewed with lung, soft tissue and bone windows. Reconstructed coronal and sagittal MPR images review ed. Images stored on PACS. All CT scanners at this facility use dose modulation, iterative reconstruction, and/or weight based d osing when appropriate to reduce radiation dose to as low as reasonably achievable (ALARA). [facility]: Dose Right [facility]: CareDose [facility]: Dose Right [facility]: Teradose 4D [facility]: [employer] RADIATION DOSE: CT Rad equipment meets quality standard of care and radiation dose reduction techniq ues were employed. CTDIvol: 19.8 mGy. DLP: 486 mGy-cm. mGy. LIMITATIONS: None. FINDINGS: ALIGNMENT: Anatomic. MINERALIZATION: Normal. VERTEBRAL BODIES: No fractures or dislocation. DISCS: Multilevel disc space narrowing with osteophytes. FACETS, LATERAL MASSES, POSTERIOR ELEMENTS: Facet arthropathy. No fractures. No dislocation. No ac makenzie findings. HARDWARE: None in the spine. VISUALIZED RIBS: No fractures. LUNG APICES AND SOFT TISSUES: No significant or acute findings. OTHER: No other significant finding. IMPRESSION: CHRONIC DEGENERATIVE CHANGES. NO ACUTE FINDINGS. TECHNICAL DOCUMENTATION: JOB ID: [id number] Quality ID # [id number]: Final reports with documentation of one or more dose reduction techniques (e.g., Au tomated exposure control, adjustment of the mA and/or kV according to patient size, use of iterative reconstruction technique) 2010 [employer]- All Rights Reserved Reading location - IP/workstation name: [email or web address]
[2017-11-03 19:08] LABS: APPEARANCE,URINE SLIGHTLY-CLOUDY; BILIRUBIN,URINE NEGATIVE (NEGATIVE); COLOR,URINE YELLOW; GLUCOSE, URINE NEGATIVE (NEGATIVE); KETONES,URINE NEGATIVE (NEGATIVE); LEUKOCYTE ESTERASE,URINE TRACE (NEGATIVE); NITRITE,URINE NEGATIVE (NEGATIVE); PROTEIN,URINE NEGATIVE (NEGATIVE); URINE SPECIFIC GRAVITY 1.014; UROBILINOGEN,URINE NEGATIVE mg/dL (<2.0)
[2017-11-03 19:12] LABS: ABSOLUTE EOSINOPHILS # (AUTO) 0.2 10^3/uL (0.0-0.6); ABSOLUTE LYMPHOCYTES (AUTO) 2.1 10^3/uL (0.5-4.7); ABSOLUTE MONOCYTES (AUTO) 0.5 10^3/uL (0.1-1.4); ABSOLUTE NEUT (AUTO) 5.5 10^3/uL (1.7-8.2); BASOPHILS % (AUTO) 0.4 % (0-2); EOSINOPHILS % (AUTO) 1.9 % (0-6); HEMATOCRIT 43.1 % (36.0-47.0); HEMOGLOBIN 14.5 g/dL (12.0-15.5); LYMPHOCYTES % (AUTO) 25.4 % (13-45); MEAN CORPUSCULAR HEMOGLOBIN 29.7 pg (27.0-33.4); MEAN CORPUSCULAR HGB CONC 33.7 g/dL (32.0-36.0); MEAN CORPUSCULAR VOLUME 88 fl (80-97); MONOCYTES % (AUTO) 5.9 % (3-13); PLATELET COUNT 296 10^3/uL (150-450); RED BLOOD COUNT 4.89 10^6/uL (3.72-5.28); RED CELL DISTRIBUTION WIDTH 13.8 % (11.5-14.0); SEGMENTED NEUTROPHILS % (AUTO) 66.4 % (42-78); TOTAL CELLS COUNTED % (AUTO) 100 %; WHITE BLOOD COUNT 8.3 10^3/uL (4.0-10.5)
[2017-11-03 19:31] LABS: ALANINE AMINOTRANSFERASE 17 U/L (9-52); ALBUMIN 4.5 g/dL (3.5-5.0); ALKALINE PHOSPHATASE 72 U/L (38-126); ANION GAP 12 (5-19); ASPARTATE AMINO TRANSFERASE 17 U/L (14-36); BILIRUBIN,DIRECT 0.3 mg/dL (0.0-0.4); BILIRUBIN,TOTAL 0.4 mg/dL (0.2-1.3); BLOOD UREA NITROGEN 10 mg/dL (7-20); CALCIUM 9.7 mg/dL (8.4-10.2); CARBON DIOXIDE 28 mmol/L (22-30); CHLORIDE 103 mmol/L (98-107); GLUCOSE 87 mg/dL (75-110); PHOSPHORUS 4.9 mg/dL (2.5-4.5); POTASSIUM 4.6 mmol/L (3.6-5.0); SODIUM 143.3 mmol/L (137-145); TOTAL PROTEIN 7.7 g/dL (6.3-8.2)
--- NOTE | 2017-11-03 19:55 | EKG REPORT ---
SEVERITY:- ABNORMAL ECG - SINUS RHYTHM LEFT VENTRICULAR HYPERTROPHY : Confirmed by: Anselmo Mccarthy MD 03-Nov-2017 19:55:07
--- NOTE | 2017-11-03 20:04 | ER Document Report ---
ED General - General Chief Complaint: Passed Out Prior to Arrival Stated Complaint: SYNCOPE EPISODE Time Seen by Provider: 11/03/17 17:30 Notes: 52-year-old female to the emergency department for evaluation of syncope. Patient states that she has had 3 syncopal episodes in the last 3 weeks. Most recent of which was prior to arrival and yesterday as well. Patient was seen by her primary care doctor. Was told to drink some Gatorade and to hydrate as she may have some dehydration. States that she was at [facility] getting some Gatorade when she passed out again. EMS got there and reportedly had of some transient hypotension. Patient was able to sit upright drink or Gatorade and was actually feeling much better and wanted to AMA but ambulance convinced her to come here. Patient feels much better at this time. Denies any symptoms other than some pain in the back of her head and neck from the fall and hitting her head. TRAVEL OUTSIDE OF THE [place] IN LAST 30 DAYS: No - HPI Onset: Just prior to arrival Onset/Duration: Sudden Quality of pain: Achy Severity: Moderate Pain Level: 3 - Related Data Allergies/Adverse Reactions: hydromorphone HCl [From Dilaudid] Allergy (Verified 06/09/17 15:07) prednisone Allergy (Verified 06/09/17 15:07) Psychosis tetracycline [Tetracycline] Allergy (Verified 06/09/17 15:07) Past Medical History - General Information source: Patient - Social History Smoking Status: Current Every Day Smoker Chew tobacco use (# tins/day): No Frequency of alcohol use: Rare Drug Abuse: None Lives with: Family Family History: None, CAD, DM, Hypertension Patient has suicidal ideation: No Patient has homicidal ideation: No - Past Medical History Cardiac Medical History: Reports: Hx Hypertension Denies: Hx Coronary Artery Disease, Hx Heart Attack Pulmonary Medical History: Reports: Hx COPD, Hx Pneumonia Denies: Hx Asthma, Hx Bronchitis Neurological Medical History: Denies: Hx Cerebrovascular Accident, Hx Seizures Renal/ Medical History: Reports: Hx Kidney Stones. Denies: Hx Peritoneal Dialysis GI Medical History: Reports: Hx Diverticulitis Musculoskeletal Medical History: Reports Hx Arthritis, Reports Hx Musculoskeletal Trauma Psychiatric Medical History: Reports: Hx Bipolar Disorder, Hx Depression, Hx Post Traumatic Stress Disorder Traumatic Medical History: Reports: Hx Pneumothorax Past Surgical History: Reports: Hx Abdominal Surgery - abscess, SB resection , Hx Adenoidectomy, Hx Appendectomy, Hx Section, Hx Cholecystectomy, Hx Tonsillectomy - and adenoids, Hx Tubal Ligation, Other - Exploratory laparotomy with small bowel resection for trauma. - Immunizations Immunizations up to date: Yes Hx Diphtheria, Pertussis, Tetanus Vaccination: Yes Review of Systems - Review of Systems Notes: Constitutional: denies: Chills, Diaphoresis, Fever, Malaise, Weakness EENT: denies: Eye discharge, Blurred vision, Tearing, Double vision, Nose congestion, Nose discharge, Throat swelling, Mouth pain Cardiovascular: denies: Palpitations, Heart racing, Orthopnea, Dyspnea, Chest pain. Does complain of syncope Respiratory: denies: Cough, Hurts to breathe, Wheezing, Shortness of breath Gastrointestinal: denies: Abdominal pain, Diarrhea, Nausea, Vomiting, Black stools, bright red blood in stool Genitourinary: denies: Burning, Dysuria, Discharge, Frequency, Flank pain, Hematuria Musculoskeletal: denies: Joint pain, Joint swelling, Muscle pain, Muscle stiffness, back pain. Does complain of neck pain Hematologic/Lymphatic: denies: Anemia, Easy bleeding, Easy bruising, Blood clots Neurological/Psychological: denies: Confusion, Dementia, Depression, Loss of consciousness Skin: No lesions, no masses, no skin breakdown, no abscesses Physical Exam - Vital signs Vitals: Temp Pulse Resp BP Pulse Ox 98.1 F 80 16 98/65 L 96 11/03/17 16:43 11/03/17 16:43 11/03/17 16:43 11/03/17 16:43 11/03/17 16:43 Interpretation: Normal - General General appearance: Appears well, Alert - HEENT Head: Normocephalic, Atraumatic Eyes: Normal Pupils: PERRL - Respiratory Respiratory status: No respiratory distress Chest status: Nontender Breath sounds: Normal Chest palpation: Normal - Cardiovascular Rhythm: Regular Heart sounds: Normal auscultation Murmur: No - Abdominal Inspection: Normal Distension: No distension Bowel sounds: Normal Tenderness: Nontender Organomegaly: No organomegaly - Back Back: Normal, Nontender - Extremities General upper extremity: Normal inspection, Nontender, Normal color, Normal ROM , Normal temperature General lower extremity: Normal inspection, Nontender, Normal color, Normal ROM , Normal temperature, Normal weight bearing. No: Gerber's sign - Neurological Neuro grossly intact: Yes Cognition: Normal Orientation: AAOx4 [place] Coma Scale Eye Opening: Spontaneous [place] Coma Scale Verbal: Oriented [place] Coma Scale Motor: Obeys Commands [place] Coma Scale Total: 15 Speech: Normal Motor strength normal: LUE, RUE, LLE, RLE Sensory: Normal - Psychological Associated symptoms: Normal affect, Normal mood - Skin Skin Temperature: Warm Skin Moisture: Dry Skin Color: Normal Course - Re-evaluation Re-evalutation: 11/03/17 20:03 Laboratory 11/03/17 11/03/17 11/03/17 18:37 18:58 18:58 WBC 8.3 RBC 4.89 Hgb 14.5 Hct 43.1 MCV 88 MCH 29.7 MCHC 33.7 RDW 13.8 Plt Count 296 Seg Neutrophils % 66.4 Lymphocytes % 25.4 Monocytes % 5.9 Eosinophils % 1.9 Basophils % 0.4 Absolute Neutrophils 5.5 Absolute Lymphocytes 2.1 Absolute Monocytes 0.5 Absolute Eosinophils 0.2 Absolute Basophils 0.0 Sodium 143.3 Potassium 4.6 Chloride 103 Carbon Dioxide 28 Anion Gap 12 BUN 10 Creatinine 0.88 Est GFR ( Amer) > 60 Est GFR (Non-Af Amer) > 60 Glucose 87 Calcium 9.7 Phosphorus 4.9 H Magnesium 2.0 Total Bilirubin 0.4 Direct Bilirubin 0.3 Neonat Total Bilirubin Not Reportable Neonat Direct Bilirubin Not Reportable Neonat Indirect Bili Not Reportable AST 17 ALT 17 Alkaline Phosphatase 72 Troponin I Total Protein 7.7 Albumin 4.5 Urine Color YELLOW Urine Appearance SLIGHTLY-CLOUDY Urine pH 5.0 Ur Specific [place] 1.014 Urine Protein NEGATIVE Urine Glucose (UA) NEGATIVE Urine Ketones NEGATIVE Urine Blood NEGATIVE Urine Nitrite NEGATIVE Urine Bilirubin NEGATIVE Urine Urobilinogen NEGATIVE Ur Leukocyte Esterase TRACE H Urine WBC (Auto) 7 Urine RBC (Auto) 1 U Hyaline Cast (Auto) 1 Urine Bacteria (Auto) TRACE Squamous Epi Cells Auto 16 Urine Mucus (Auto) MANY Urine Ascorbic Acid NEGATIVE 11/03/17 18:58 WBC RBC Hgb Hct MCV MCH MCHC RDW Plt Count Seg Neutrophils % Lymphocytes % Monocytes % Eosinophils % Basophils % Absolute Neutrophils Absolute Lymphocytes Absolute Monocytes Absolute Eosinophils Absolute Basophils Sodium Potassium Chloride Carbon Dioxide Anion Gap BUN Creatinine Est GFR ( Amer) Est GFR (Non-Af Amer) Glucose Calcium Phosphorus Magnesium Total Bilirubin Direct Bilirubin Neonat Total Bilirubin Neonat Direct Bilirubin Neonat Indirect Bili AST ALT Alkaline Phosphatase Troponin I < 0.012 Total Protein Albumin Urine Color Urine Appearance Urine pH Ur Specific [place] Urine Protein Urine Glucose (UA) Urine Ketones Urine Blood Urine Nitrite Urine Bilirubin Urine Urobilinogen Ur Leukocyte Esterase Urine WBC (Auto) Urine RBC (Auto) U Hyaline Cast (Auto) Urine Bacteria (Auto) Squamous Epi Cells Auto Urine Mucus (Auto) Urine Ascorbic Acid Cervical Spine CT 11/03/17 17:37 IMPRESSION: CHRONIC DEGENERATIVE CHANGES. NO ACUTE FINDINGS. Head CT 11/03/17 17:37 IMPRESSION: NORMAL BRAIN CT WITHOUT CONTRAST. EVIDENCE OF ACUTE STROKE: NO. Chest X-Ray 11/03/17 17:39 IMPRESSION: NO ACUTE RADIOGRAPHIC FINDING IN THE CHEST. 11/03/17 20:09 I did consult with patient's primary care doctor Dr. Reyes I with is concerned about her frequent syncopal episodes and the need for a workup. Dr. Reyes says that he knows this patient quite well and he has been seeing her regularly as an outpatient. He states that she has been taking a beta-maris and he stopped it today after seeing her in the office. She has known hypotension. he will see her as an outpatient and does not want her admitted for stress test. - Vital Signs Vital signs: Temp Pulse Resp BP Pulse Ox 98.1 F 80 16 98/65 L 97 11/03/17 16:43 11/03/17 16:43 11/03/17 19:32 11/03/17 16:43 11/03/17 19:46 - Laboratory Result Diagrams: 11/03/17 18:58 11/03/17 18:58 Laboratory results interpreted by me: 11/03/17 11/03/17 18:37 18:58 Phosphorus 4.9 H Ur Leukocyte Esterase TRACE H - EKG Interpretation by Pr EKG shows normal: [place], Intervals, QRS Complexes, ST-T Waves Voltage: Consistant with LVH When compared to previous EKG there are: No significant change Discharge - Discharge Clinical Impression: Syncope and collapse Condition: Good Disposition: HOME, SELF-CARE Instructions: Syncopal Episode ([facility]) Additional Instructions: Your doctor thinks that your syncope is due to the blood pressure medication for which she were on causing low blood pressure. He would like to see you in the office as soon as possible. He would like you to be scheduled for outpatient stress testing which she will follow up on. In the meantime, if you develop any other episodes of passing out or other concerns you should return immediately Referrals: PAULINE REYES MD [Primary Care Provider] - 11/04/17 8:00 am
[2017-11-03] MEDS ORDERED: RINGERS SOLUTION,LACTATED 1,000 ML IV ONE (20:11)
[2017-11-03] MEDS ORDERED: ASPIRIN 81 MG TABLET, CHEWABLE PO ONE (20:11)
[2017-11-03 20:26] VITALS: BP 116/63
== END 2017-11-03 20:20 | disposition home or self-care (01) ==
LOC: ER 16:36
DX: I95.9 Hypotension, unspecified (principal); R55 Syncope and collapse; R51 Headache; M54.2 Cervicalgia; W19.XXXA Unspecified fall, initial encounter; Y93.89 Activity, other specified; Y92.512 Supermarket, store or market as the place of occurrence of the external cause; M47.9 Spondylosis, unspecified; F17.200 Nicotine dependence, unspecified, uncomplicated; I10 Essential (primary) hypertension; J44.9 Chronic obstructive pulmonary disease, unspecified; Z79.899 Other long term (current) drug therapy; Z88.5 Allergy status to narcotic agent; Z88.8 Allergy status to other drugs, medicaments and biological substances; Z88.1 Allergy status to other antibiotic agents
CPT/HCPCS: 36415; 70450; 71046; 72125; 80053; 81001; 83735; 84100; 84484; 85025; 87040; 87086; 93005; 93010; 99285